=== PATIENT | female | born 1990 | race Caucasian/White ===

== ENCOUNTER 2017-09-13 17:45 | Inpatient (IN) ==
[2017-10-21] MEDS ORDERED: Vancomycin Consult Pharmacy 1 EACH OTHER SCH (00:01)
[2017-10-21] MEDS ORDERED: Bisacodyl 10 MG Supp RECTAL PRN (00:01)
[2017-10-21] MEDS ORDERED: Temazepam 15 MG Capsule PO PRN (00:01)
[2017-10-21] MEDS ORDERED: Acetaminophen 325 MG Tablet PO PRN (00:01)
[2017-10-21] MEDS ORDERED: Chlorhexidine Gluconate 2% 1 Pack (2 Cloths) TOPICAL PRN (04:00)
[2017-10-21] MEDS: Chlorhexidine Gluconate 2% 1 Pack (2 Cloths) TOPICAL SCH (05:21)
[2017-10-21 06:44] VITALS: RESP 18
[2017-10-21] MEDS: Morphine Sulfate 15 MG SR Tablet PO SCH (09:40)
[2017-10-21] MEDS: Famotidine 20 MG Tablet PO SCH (09:40)
[2017-10-21] MEDS: Senna/Docusate Sodium 8.6/50 MG Tablet PO SCH ×2 (09:40→22:45)
[2017-10-21] MEDS: Vancomycin Inj 750 MG in Sodium Chlor 0.9% Inj 250 ML IV.SIG SCH (10:42)
--- NOTE | 2017-10-21 15:41 | P.PNIM ---
Subjective Interval history: The patient complains of shooting pains into bilateral arms. Denies fevers or chills. Denies chest pain or shortness of breath. Physical Exam Vital signs: Vital Signs 10/21/17 00:58 10/21/17 04:20 10/21/17 08:00 Temperature 99 F 99 F 98.1 F Pulse Rate 96 H 89 79 Respiratory Rate 16 18 18 Blood Pressure 108/64 110/63 105/47 L Pulse Oximetry 100 99 99 10/21/17 12:00 Temperature 98.7 F Pulse Rate 93 H Respiratory Rate 18 Blood Pressure 121/58 L Pulse Oximetry 99 Intake & Output 10/20/17 10/21/17 10/21/17 18:59 06:59 18:59 Intake Total 1200 / 1200 Balance 1200 / 1200 Weight 52.1 kg 52 kg Intake: Oral 1200 / 1200 Other: # Voids 4 # Bowel Movements 0 - Constitutional no acute distress - Routine HEENT Exam Head: Present: normocephalic Eye: Present: EOMI, PERRL ENT: Present: mucous membranes moist - Routine Neck Exam Present: supple, full ROM - Routine Respiratory Exam Present: CTA bilaterally - Routine Cardiovascular Exam Present: murmur (Holosystolic murmur.) - Routine Abdominal Exam Present: soft, normoactive bowel sounds - Routine Extremities Exam Present: full ROM, pulses intact, normal capillary refill - Routine Skin Exam Present: intact - Routine Neurological Exam Present: alert, oriented X3, CN II-XII intact - Detailed Neurological Exam: Coma Scale Eye Opening: Spontaneous - Routine Psychiatric Exam Present: normal affect Results - Labs CBC & Chem 7: 10/20/17 07:06 10/20/17 07:06 Labs: Laboratory Results - last 24 hr 10/17/17 10/17/17 10/18/17 10:20 10:20 18:40 WBC RBC Hgb Hct MCV MCH MCHC RDW Plt Count MPV Neut % (Auto) Lymph % (Auto) [place] % (Auto) Eos % (Auto) Baso % (Auto) Neut # (Auto) Lymph # (Auto) [place] # (Auto) Eos # (Auto) Baso # (Auto) CBC Comment Sodium Potassium Chloride Carbon Dioxide Anion Gap BUN Creatinine 0.90 Estimated GFR 76 L Random Glucose Calcium Total Bilirubin AST ALT Alkaline Phosphatase Total Protein Albumin Vancomycin Trough Cancelled 14.0 H Urine Opiates Screen POS H Ur Barbiturates Screen NEG Ur Amphetamines Screen NEG U Benzodiazepines Scrn NEG Urine Cocaine Screen NEG U Cannabinoids Screen NEG 10/19/17 10/19/17 10/20/17 09:11 09:11 07:06 WBC 4.9 RBC 3.99 L Hgb 11.2 L Hct 33.9 L MCV 84.8 MCH 28.2 MCHC 33.2 RDW 14.1 Plt Count 271 MPV 7.3 Neut % (Auto) 57.0 Lymph % (Auto) 28.3 [place] % (Auto) 8.7 H Eos % (Auto) 5.2 H Baso % (Auto) 0.8 Neut # (Auto) 2.8 Lymph # (Auto) 1.4 [place] # (Auto) 0.4 Eos # (Auto) 0.3 Baso # (Auto) 0.0 CBC Comment DIFF FINAL Sodium 137 138 Potassium 3.5 3.8 Chloride 103 105 Carbon Dioxide 22.3 24.8 Anion Gap 12 8 BUN 18 15 Creatinine 0.89 0.89 Estimated GFR 77 L 77 L Random Glucose 61 L 74 Calcium 9.2 8.7 Total Bilirubin 0.2 0.3 AST 45 H 50 H ALT 80 H 81 H Alkaline Phosphatase 78 69 Total Protein 8.6 H 7.6 D Albumin 3.7 3.2 L Vancomycin Trough Urine Opiates Screen Ur Barbiturates Screen Ur Amphetamines Screen U Benzodiazepines Scrn Urine Cocaine Screen U Cannabinoids Screen 10/20/17 07:06 WBC 6.0 RBC 3.61 L Hgb 10.5 L Hct 30.6 L MCV 84.7 MCH 29.2 MCHC 34.5 RDW 13.6 Plt Count 259 MPV 7.8 Neut % (Auto) 62.0 Lymph % (Auto) 22.0 [place] % (Auto) 10.2 H Eos % (Auto) 5.0 H Baso % (Auto) 0.8 Neut # (Auto) 3.7 Lymph # (Auto) 1.3 [place] # (Auto) 0.6 Eos # (Auto) 0.3 Baso # (Auto) 0.0 CBC Comment DIFF FINAL Sodium Potassium Chloride Carbon Dioxide Anion Gap BUN Creatinine Estimated GFR Random Glucose Calcium Total Bilirubin AST ALT Alkaline Phosphatase Total Protein Albumin Vancomycin Trough Urine Opiates Screen Ur Barbiturates Screen Ur Amphetamines Screen U Benzodiazepines Scrn Urine Cocaine Screen U Cannabinoids Screen Assessment and Plan - Plan 27-year-old female with Severe sepsis 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 Currently on vancomycin IV every 12 hours repeat blood cultures from 09/19- negative for 5 days repeat 2d Echo- no MV vegetation reported on report- PT/OT daily 10/21 to the echocardiogram shows an EF of 55-60%. There is an anterior mitral valve leaflet prolapse. Report document small vegetation noted on anterior leaflet with extracardiac motion consistent with endocarditis. Severe mitral regurgitation. Await ID recommendations. Will contact CT surgery regarding recommendations regarding possible surgical procedure for mitral valve replacement. Left brachial vein DVT Right upper extremity DVT clinically improved on Eliquis 5 mg p.o. twice daily Hepatitis C Outpatient follow-up with Hepatology History fo substance abuse- snorting cocaine and marijuana Chronic Pain, bilateral UE weakness from recurrent DVT chronic back pain cervical/back Imaging studies negative PT daily. OT daily On Dilaudid to 1 mg po q 6 prn for pain continue on Morphine 15 mg bid po no change in regimen High suspicion the patient is doing drugs in the hospital. The patient has been placed closer to nurses station, her name has been changed to an Alias name and visitation rights have been restricted. 10/21 patient complains of bilateral shooting pains to bilateral upper extremities. This could be secondary to upper extremity DVT, however will start the patient on gabapentin for pain control. 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 Discharge Planning: Pending ID and CT surgery clearance.
[2017-10-22] MEDS: Vancomycin Inj 750 MG in Sodium Chlor 0.9% Inj 250 ML IV.SIG SCH ×3 (04:46→22:18)
[2017-10-22] MEDS: Morphine Sulfate 15 MG SR Tablet PO SCH ×3 (04:46→22:12)
[2017-10-22] MEDS: Famotidine 20 MG Tablet PO SCH ×3 (04:46→22:12)
[2017-10-22] MEDS: Chlorhexidine Gluconate 2% 1 Pack (2 Cloths) TOPICAL SCH (04:50)
[2017-10-22] MEDS ORDERED: Pharmacy Ordered Lab Info OTHER ONE ×2 (09:45→21:45)
[2017-10-22] MEDS: Senna/Docusate Sodium 8.6/50 MG Tablet PO SCH ×2 (10:48→22:15)
[2017-10-22] MEDS: ALPRAZolam 0.25 MG Tablet PO PRN ×2 (12:41)
--- NOTE | 2017-10-22 12:52 | P.PNIM ---
Subjective Interval history: Still c/o BL arm pain described as shooting pains in BL upper extremities, denies weakness. Denies fevers or chills. Denies diarrhea. Physical Exam Vital signs: Vital Signs 10/21/17 16:00 10/21/17 20:20 10/22/17 01:00 Temperature 99.8 F H 99 F 98.7 F Pulse Rate 101 H 95 H 103 H Respiratory Rate 18 16 16 Blood Pressure 103/52 L 104/50 L 136/82 Pulse Oximetry 99 99 99 10/22/17 04:00 10/22/17 08:00 10/22/17 08:54 Temperature 98 F 98.4 F Pulse Rate 88 74 80 Respiratory Rate 16 20 Blood Pressure 118/57 L 116/57 L Pulse Oximetry 100 99 10/22/17 12:35 Temperature 98.6 F Pulse Rate 81 Respiratory Rate 20 Blood Pressure 113/53 L Pulse Oximetry 99 Intake & Output 10/21/17 10/22/17 10/22/17 18:59 06:59 18:59 Intake Total 257.5 / 257.5 3657.5 / 3657.5 Balance 257.5 / 257.5 3657.5 / 3657.5 Weight 52 kg Intake: IV 257.5 / 257.5 257.5 / 257.5 Vancomycin Inj 750 MG In NS Inj 257.5 / 257.5 257.5 / 257.5 250 ML @ 250 mls/hr IV.SIG Q12H ANDREIA Rx#:[id number] Oral 3400 / 3400 Other: # Voids 2 # Bowel Movements 0 Narrative: - Constitutional no acute distress - Routine HEENT Exam Head: Present: normocephalic Eye: Present: EOMI, PERRL ENT: Present: mucous membranes moist - Routine Neck Exam Present: supple, full ROM - Routine Respiratory Exam Present: CTA bilaterally - Routine Cardiovascular Exam Present: murmur (Holosystolic murmur.) - Routine Abdominal Exam Present: soft, normoactive bowel sounds - Routine Extremities Exam Present: full ROM, pulses intact, normal capillary refill - Routine Skin Exam Present: intact - Routine Neurological Exam Present: alert, oriented X3, CN II-XII intact - Detailed Neurological Exam: Coma Scale Eye Opening: Spontaneous - Routine Psychiatric Exam Present: normal affect Results - Labs CBC & Chem 7: 10/20/17 07:06 10/20/17 07:06 Laboratory Results WBC 6.0 TH/MM3 (4.0-11.0) 10/20/17 07:06 RBC 3.61 MIL/MM3 (4.00-5.30) L 10/20/17 07:06 Hgb 10.5 GM/DL (11.6-15.3) L 10/20/17 07:06 Hct 30.6 % (35.0-46.0) L 10/20/17 07:06 MCV 84.7 FL (80.0-100.0) 10/20/17 07:06 MCH 29.2 PG (27.0-34.0) 10/20/17 07:06 MCHC 34.5 % (32.0-36.0) 10/20/17 07:06 RDW 13.6 % (11.6-17.2) 10/20/17 07:06 Plt Count 259 TH/MM3 (150-450) 10/20/17 07:06 MPV 7.8 FL (7.0-11.0) 10/20/17 07:06 Neut % (Auto) 62.0 % (16.0-70.0) 10/20/17 07:06 Lymph % (Auto) 22.0 % (9.0-44.0) 10/20/17 07:06 [place] % (Auto) 10.2 % (0.0-8.0) H 10/20/17 07:06 Eos % (Auto) 5.0 % (0.0-4.0) H 10/20/17 07:06 Baso % (Auto) 0.8 % (0.0-2.0) 10/20/17 07:06 Neut # (Auto) 3.7 TH/MM3 (1.8-7.7) 10/20/17 07:06 Lymph # (Auto) 1.3 TH/MM3 (1.0-4.8) 10/20/17 07:06 [place] # (Auto) 0.6 TH/MM3 (0-0.9) 10/20/17 07:06 Eos # (Auto) 0.3 TH/MM3 (0-0.4) 10/20/17 07:06 Baso # (Auto) 0.0 TH/MM3 (0-0.2) 10/20/17 07:06 CBC Comment DIFF FINAL 10/20/17 07:06 Total Counted 09/14/17 04:08 Neutrophils % (Manual) % (16-70) 09/14/17 04:08 Band Neutrophils % % (0-6) 09/14/17 04:08 Lymphocytes % % (9-44) 09/14/17 04:08 Neutrophils # (Manual) 7.3 TH/MM3 (1.8-7.7) 09/14/17 04:08 Differential Comment AUTO DIFF CONFIRMED 09/17/17 23:45 Toxic Granulation (NORMAL) 09/14/17 04:08 Toxic Vacuolation (NONE SEEN) 09/14/17 04:08 Dohle Bodies (NONE SEEN) 09/14/17 04:08 Platelet Estimate LOW (NORMAL) L 09/17/17 23:45 Plt Morphology Comment NORMAL (NORMAL) 09/17/17 23:45 RBC Morph Comment (NORMAL) 09/14/17 04:08 PT 11.2 SEC (9.8-11.6) 09/15/17 04:55 INR 1.1 RATIO 09/15/17 04:55 APTT 32.7 SEC (24.3-30.1) H D 09/15/17 04:55 Fibrinogen 401 mg/dL (227-377) H 09/15/17 04:55 Sodium 138 MEQ/L (136-145) 10/20/17 07:06 Potassium 3.8 MEQ/L (3.5-5.1) 10/20/17 07:06 Chloride 105 MEQ/L (98-107) 10/20/17 07:06 Carbon Dioxide 24.8 MEQ/L (21.0-32.0) 10/20/17 07:06 Anion Gap 8 MEQ/L (5-15) 10/20/17 07:06 BUN 15 MG/DL (7-18) 10/20/17 07:06 Creatinine 0.89 MG/DL (0.50-1.00) 10/20/17 07:06 Estimated GFR 77 ML/MIN (>89) L 10/20/17 07:06 Random Glucose 74 MG/DL (74-106) 10/20/17 07:06 Lactic Acid 2.8 mmol/L (0.4-2.0) H 09/15/17 04:55 Calcium 8.7 MG/DL (8.5-10.1) 10/20/17 07:06 Prot Corrected Calcium 7.3 MG/DL (8.5-10.1) L* 09/16/17 08:33 Phosphorus 3.3 MG/DL (2.5-4.9) D 09/17/17 07:45 Magnesium 1.7 MG/DL (1.5-2.5) D 09/16/17 08:33 Total Bilirubin 0.3 MG/DL (0.2-1.0) 10/20/17 07:06 AST 50 U/L (15-37) H 10/20/17 07:06 ALT 81 U/L (10-53) H 10/20/17 07:06 Alkaline Phosphatase 69 U/L (45-117) 10/20/17 07:06 Total Creatine Kinase 51 U/L (26-192) 09/16/17 08:33 CK-MB (CK-2) 1.4 NG/ML (0.5-3.6) 09/13/17 18:50 Troponin I 0.05 NG/ML (0.02-0.05) 09/24/17 11:50 C-Reactive Protein 6.80 MG/DL (0.00-0.30) H 09/21/17 05:51 Total Protein 7.6 GM/DL (6.4-8.2) D 10/20/17 07:06 Albumin 3.2 GM/DL (3.4-5.0) L 10/20/17 07:06 Thiamine 102 nmol/L (70-180) 09/15/17 04:55 Vitamin B12 748 PG/ML (193-986) 09/14/17 09:31 Thyroxine (T4) 8.4 MCG/DL (4.8-13.9) 09/14/17 09:31 TSH 3rd Generation 1.450 uIU/ML (0.358-3.740) 09/14/17 09:31 HCG, Quant LESS THAN 1 MIU/ML (0-5) 09/13/17 18:50 Urine Color YELLOW (YELLW/STRAW) 09/13/17 19:50 Urine Turbidity CLEAR (CLEAR) 09/13/17 19:50 Urine pH 5.5 (5.0-8.5) 09/13/17 19:50 Ur Specific [place] 1.006 (1.002-1.035) 09/13/17 19:50 Urine Protein NEG mg/dL (NEG-TRACE) 09/13/17 19:50 Urine Glucose (UA) NEG mg/dL (NEG) 09/13/17 19:50 Urine Ketones NEG mg/dL (NEG) 09/13/17 19:50 Urine Occult Blood SMALL (NEG) H 09/13/17 19:50 Urine Nitrite NEG (NEG) 09/13/17 19:50 Urine Bilirubin NEG (NEG) 09/13/17 19:50 Urine Urobilinogen LESS THAN 2.0 MG/DL (LESS THAN 2.0) 09/13/17 19:50 Ur Leukocyte Esterase MOD (NEG) H 09/13/17 19:50 Urine RBC 1 /hpf (0-3) 09/13/17 19:50 Urine WBC 8 /hpf (0-5) H 09/13/17 19:50 Ur Squamous Epith Cells 1 /hpf (0-5) 09/13/17 19:50 Urine Bacteria OCC /hpf (NONE) H 09/13/17 19:50 Urine Mucus FEW /lpf (OCC) H 09/13/17 19:50 Micro UA Comment CATH-CULTURE IND 09/13/17 19:50 CSF Volume (1) 3.0 ML 09/13/17 22:08 CSF Supernat Color (1) CLEAR (CLEAR) 09/13/17 22:08 CSF Gross Blood (1) TRACE (0) H 09/13/17 22:08 CSF Volume (2) 3.5 ML 09/13/17 22:08 CSF Supernat Color (2) CLEAR (CLEAR) 09/13/17 22:08 CSF Gross Blood (2) TRACE (0) 09/13/17 22:08 CSF Volume (3) 2.8 ML 09/13/17 22:08 CSF Supernat Color (3) CLEAR (CLEAR) 09/13/17 22:08 CSF Gross Blood (3) TRACE (0) H 09/13/17 22:08 CSF Volume (4) 2.8 ML 09/13/17 22:08 CSF Supernat Color (4) CLEAR (CLEAR) 09/13/17 22:08 CSF Gross Blood (4) TRACE (0) H 09/13/17 22:08 CSF WBC (4) 83 /MM3 (0-10) H 09/13/17 22:08 CSF RBC (4) 543 /MM3 (NONE) H 09/13/17 22:08 CSF Neutrophils 91 % 09/13/17 22:08 CSF Lymphocytes 8 % 09/13/17 22:08 CSF Monocytes 1 % 09/13/17 22:08 CSF Glucose 55 MG/DL (40-80) 09/13/17 22:08 CSF LDH LESS THAN 6 U/L 09/13/17 22:08 CSF Lactic Acid 4.3 MMOL/L (0.0-3.0) H 09/13/17 22:08 CSF Total Protein 73.4 MG/DL (15.0-45.0) H 09/13/17 22:08 CSF VDRL NON-REACTIVE (NON-REACTVE) 09/13/17 22:08 CSF Lyme IgG Bands Det 09/13/17 22:08 CSF Lyme IgM Bands Det 09/13/17 22:08 CSF Cryptococcus Ag NOT DETECTED (NEGATIVE) 09/13/17 22:08 CSF Cryptococcus Ag Cnfm ND 09/13/17 22:08 CSF Enterovirus Source CSF 09/13/17 22:08 CSF Enterovirus RNA Qual Negative (Negative) 09/13/17 22:08 Nasal Screen MRSA (PCR) MRSA DETECTED (NOT DETECT) 09/13/17 22:40 Gentamicin Peak 2.9 MCG/ML (4.0-8.0) L 09/20/17 01:33 Gentamicin Trough 1.0 MCG/ML (0.0-2.0) 09/19/17 21:45 Vancomycin Peak 9.5 MCG/ML (30.0-40.0) L 09/17/17 16:45 Vancomycin Trough 14.0 MCG/ML (5.0-10.0) H 10/17/17 10:20 Random Vancomycin 15.6 COMMENT 09/25/17 05:59 Urine Opiates Screen POS (NEG) H 10/18/17 18:40 Ur Barbiturates Screen NEG (NEG) 10/18/17 18:40 Ur Amphetamines Screen NEG (NEG) 10/18/17 18:40 U Benzodiazepines Scrn NEG (NEG) 10/18/17 18:40 Urine Cocaine Screen NEG (NEG) 10/18/17 18:40 U Cannabinoids Screen NEG (NEG) 10/18/17 18:40 RPR NON-REACTIVE (NON-REACTVE) 09/14/17 21:51 Chlam trachomat DNA PCR NOT DETECTED (NOT DETECT) 09/14/17 14:01 Hepatitis A IgM Ab NONREACTIVE (NONREACTIVE) 09/14/17 21:51 Hep Bs Antigen NONREACTIVE (NONREACTIVE) 09/14/17 21:51 Hep B Core IgM Ab NONREACTIVE (NONREACTIVE) 09/14/17 21:51 Hep C IgG Ab REACTIVE (NONREACTIVE) H 09/14/17 21:51 HSV I IgG Index Negative (Negative) 09/13/17 20:40 HSV I IgM Ab (IFA) NEGATIVE 09/13/17 20:40 HSV I IgM Titer ND 09/13/17 20:40 HSV II IgG Index Negative (Negative) 09/13/17 20:40 HSV II IgM Titer ND 09/13/17 20:40 HSV II IgM Ab (IFA) NEGATIVE 09/13/17 20:40 HSV I DNA PCR Negative (Negative) 09/13/17 22:08 HSV II DNA PCR Negative (Negative) 09/13/17 22:08 Blood HSV I (PCR) Negative (Negative) 09/13/17 20:40 BBlood HSV II (PCR) Negative (Negative) 09/13/17 20:40 HIV 1&2 Ab/P24 Ag 4thGn NONREACTIVE (NONREACTIVE) 09/14/17 21:51 N.gonorrhoeae DNA (PCR) NOT DETECTED (NOT DETECT) 09/14/17 14:01 - Procedures None Assessment and Plan - Plan 27-year-old female with Severe sepsis 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 Currently on vancomycin IV every 12 hours repeat blood cultures from 09/19- negative for 5 days repeat 2d Echo- no MV vegetation reported on report- PT/OT daily 10/22 to the echocardiogram shows an EF of 55-60%. There is an anterior mitral valve leaflet prolapse. Report document small vegetation noted on anterior leaflet with extracardiac motion consistent with endocarditis. Severe mitral regurgitation. Await ID recommendations. Will reconsult CT surgery regarding recommendations regarding possible surgical procedure for mitral valve replacement. Left brachial vein DVT Right upper extremity DVT clinically improved on Eliquis 5 mg p.o. twice daily 10/22 Add gabapentin 100 mg po TID for pain control of BL upper extremity pain. Hepatitis C Outpatient follow-up with Hepatology History fo substance abuse- snorting cocaine and marijuana Chronic Pain, bilateral UE weakness from recurrent DVT chronic back pain cervical/back Imaging studies negative PT daily. OT daily On Dilaudid to 1 mg po q 6 prn for pain continue on Morphine 15 mg bid po no change in regimen High suspicion the patient is doing drugs in the hospital. The patient has been placed closer to nurses station, her name has been changed to an Alias name and visitation rights have been restricted. 10/22 patient complains of bilateral shooting pains to bilateral upper extremities. This could be secondary to upper extremity DVT, however will start the patient on gabapentin for pain control. 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
--- NOTE | 2017-10-22 16:03 | P.PNCA ---
- Note Subjective/Hospital Course: 27/ female seen initially on 09/19/17 had a 2-week history of generalized fatigue , malaise, fever, chills and also a rash. She noticed this rash on her upper and lower extremities, more pronounced on her groin. Also, some night sweats, complaining of generalized pain all over, including the bottom of her feet. On admission, she was found to be somewhat septic and was admitted under critical care. Also, because of complaint of headache and neck pain, lumbar puncture studies showed elevated protein, elevated WBCs at 83,000. Blood cultures were positive for MRSA and MRSA nasal screen was also positive. She underwent 2-D echocardiogram , which showed ejection fraction of 65-70%, moderate eccentric posteriorly directed mitral regurgitation. There is a mobile echodensity located in the inflow of the anterior mitral valve of 1.8 x 0.84 cm, some moderate tricuspid regurgitation. Hepatitis C is positive. + MRSA bacteremia / treated with course of antibiotics MRA of the head is unremarkable. Abdominal pelvis CT: Small wedge-shaped perfusion defects in the spleen and both kidneys, concern for septic emboli. Brain MRI: Small septic areas of acute infarct in bilateral parietal and left occipital area. Cervical spine is negative. She has got some patchy bilateral lower lobe consolidative infiltrates. 09/18 MARIO 2.0x0.9cm mobile echodensity anterior leaflet of mitral valve initial toxicology screen is negative for illicit drugs.09/13 She does admit to snorting cocaine, smoking marijuana, smoking cigarettes. No alcohol. She denied ever using IV drugs. 10/15 tox screen + amphetamines / opiates Per PCP note High suspicion the patient is doing drugs in the hospital. The patient has been placed closer to nurses station, her name has been changed to an Alias name and visitation rights have been restricted. per ID note : RN informed she was found with drug paraphrenalia (spoon, drug filled syringe, tourniquet) 10/18 tox screen neg for amphetamines 10/22 reconsulted for repeat Echo Mitral valve endocarditis which showed small vegetation on anterior leaflet / severe MR EF 55 I Objective: Vital Signs - 24 hr 10/21/17 16:00 10/21/17 20:20 10/22/17 01:00 Temperature 99.8 F H 99 F 98.7 F Pulse Rate 101 H 95 H 103 H Respiratory Rate 18 16 16 Blood Pressure 103/52 L 104/50 L 136/82 Pulse Oximetry 99 99 99 10/22/17 04:00 10/22/17 08:00 10/22/17 08:54 Temperature 98 F 98.4 F Pulse Rate 88 74 80 Respiratory Rate 16 20 Blood Pressure 118/57 L 116/57 L Pulse Oximetry 100 99 10/22/17 12:35 Temperature 98.6 F Pulse Rate 81 Respiratory Rate 20 Blood Pressure 113/53 L Pulse Oximetry 99 GENERAL: cooperative SKIN: Warm and dry./ no wnew rashes HEAD: Normocephalic. EYES: No scleral icterus. No injection or drainage. NECK: Supple, trachea midline. No JVD or lymphadenopathy. CARDIOVASCULAR: Regular rate and rhythm 3/6 systolic murmur no gallops, or rubs. RESPIRATORY: Breath sounds equal bilaterally. No accessory muscle use. GASTROINTESTINAL: Abdomen soft, non-tender, nondistended. MUSCULOSKELETAL: No cyanosis, or edema. BACK: Nontender without obvious deformity. No CVA tenderness. Result Diagrams: 10/20/17 07:06 10/20/17 07:06 - Plan (2) Endocarditis of mitral valve Plan: Pt is positive for ongoing IV drug use with recent findings per Tox screen She is a high risk surgical candidate for mitral valve replacement as she would be best served with a mechanical valve which requires lifelong anticoagulation. She needs to cease high risk behaviors regarding drug use , tattoos . Recommend medical therapy for now . She can be seen in our office in 6 months with new urine drug screen prior to visit
[2017-10-22] MEDS: Gabapentin 100 MG Capsule PO SCH ×2 (16:06→18:04)
[2017-10-23] MEDS: ALPRAZolam 0.25 MG Tablet PO PRN (00:39)
--- NOTE | 2017-10-23 02:15 | P.AMA ---
AMA Note - AMA Note AMA Statement: Patient Elba Godoy has decided to leave the hospital against medical advice. This patient has the capacity to refuse care and understands the risks of leaving, including permanent disability and/or , and has had an opportunity to ask questions about his/her condition. The patient has been informed that he/she may return for care at any time, and follow up has been arranged/advised. - AMA Note Discharge Disposition: Left Against Medical Advice Patient Condition on Discharge: Fair
[2017-10-23 12:51] VITALS: BP 120/59; PULSE 80; TEMP 98.5
[2017-10-23 13:22] VITALS: O2SAT 100
--- NOTE | 2017-12-06 11:30 | P.DS ---
Date of admission: 09/13/17 20:03 Primary care physician: Justine Primary Care Physician Brief History from admission: Per admitting physician: 27-year-old very pleasant female presents for evaluation of diffuse painful/ pruritic rash, fever, diarrhea, generalized malaise. Symptoms started 2 days ago and have been progressively worsening. She is complaining of diffuse body pains described as burning/ache. No cough. No known allergies other than penicillin. No new exposures. No urinary symptoms. She denies IVDU or illicit drug use. She reports having had chickenpox when she was younger. During my assessment she complains of severe headache and photophobia. DS: Diagnosis - Discharge Diagnosis (1) Endocarditis of mitral valve Status: Acute (2) IVDU (intravenous drug user) Status: Acute DS: Summary Hospital Course: I am dictating this discharge summary for Dr. Sánchez since I am his supervising physician/medical coding specialist and Dr. Sánchez has left the practice. I have not seen the patient and was not involved with the patient's care at any point. This is a 27-year-old female initially admitted for evaluation of diffuse painful/pruritic rash, fever, diarrhea, generalized malaise. She denied IVDU or illicit drug use. After initial workup was done, there was a suspicion for infective endocarditis with severe sepsis. The patient was initially started on antibiotics, infectious disease was consulted. Patient was also found to have a left brachial vein DVT and right upper extremity DVT. Vascular surgery was consulted. There was a high suspicion that the patient was using drugs in the hospital hence the patient was placed close to the nurses station and her visitation rights were restricted. Conservative approach was also done with using narcotics. However during the course of the treatment, patient decided to leave AGAINST MEDICAL ADVICE hence patient was discharged AGAINST MEDICAL ADVICE. - Time Spent with Patient Total time spent providing and/or coordinating discharge services: Less than 30 minutes Results Procedures completed during hospitalization: None Discharge Plan - Discharge Disposition Patient Disposition: Left Against Medical Advice - Discharge Condition Condition: Fair - Discharge Order Discharge Orders: AMA Discharge (Routine); Ordered 10/23/17 Ordered By: Camilla Santos - Physicians Team Primary Care Provider: Primary Care Shannan,Justine Attending Provider: Robert Sousa Other Providers: Minh Parker MD ; Emi Davies MD ; Jose Ceballos MD ; Cristina Balderas MD ; - Rxs /Orders / Referrals /Forms Prescriptions: No Action No Known Home Medications
== END 2017-10-23 03:00 | disposition left against medical advice (07) ==
LOC: N05 20:03
PROVIDERS: ADMIT Hospitalist; ATTEND Hospitalist

== ENCOUNTER 2017-12-11 12:35 | Inpatient (IN) ==
[2017-12-11] MEDS ORDERED: Ketorolac Inj 30 MG/ML (IVP) Vial IV.PUSH ONE (14:26)
--- NOTE | 2017-12-11 14:37 | ED ---
HPI General Chief complaint: Extremity Problem,Nontraumatic Stated complaint: pain hands/knees/feet hx endocarditis Time Seen by Provider: 12/11/17 14:09 Source: patient Mode of arrival: ambulatory Limitations: no limitations History of Present Illness HPI narrative: 27-year-old homeless female with a history of endocarditis presents to the emergency department with the assistance of [facility] staff for evaluation of lesions and pain to the hands and knees. Patient was very reluctant to explain her symptoms today but after further discussion, she states that she has a subjective fever, headache, photophobia, stiff neck, neck pain, rashes to bilateral hands, chest pain or shortness of breath. Says that she decided to come in today because she feels weak and she is unable to live on like this. Says she has not followed up with any outpatient specialist or physicians. She is not taking any medications as an outpatient. Onset (ago): week(s) Radiation: non-radiation Pain Consistency: constant Relieving factors: none Treatments prior to arrival: none Related Data Home Medications Medication Instructions Recorded Confirmed No Known Home Medications 10/20/17 12/11/17 Allergies Allergy/AdvReac Type Severity Reaction Status Date / Time Penicillins Allergy Severe Anaphylaxis Verified 12/11/17 12:44 Review of Systems ROS: all other systems reviewed are negative [facility] Family History Family History Other No pertinent family history Social History Social History Substance History: Past History Second Hand Smoke Exposure: Yes Smoking Status: Heavy tobacco smoker Tobacco Type: Cigarettes Packs Per Day: 0.5 Cigarettes Per Day: 10.0 How Often Do You Have a Drink Containing Alcohol: Never Recent Travel in [facility] within the Last 8 Weeks: No Recent Out of Country Travel within the Last 8 Weeks: No Immunization History Tetanus Immunization: <5 Years Hx Influenza Vaccine This Season: Yes Exam Narrative Exam Narrative: GENERAL: WD, WN in moderate distress SKIN: Focused skin assessment warm/dry. bilateral hand with erythematous and ecchymotic macular, nonblanching rash- c/w [place] nodes. no nail findings such as splinter hemorrhages HEAD: Atraumatic. Normocephalic. EYES: Pupils equal and round. No scleral icterus. No injection or drainage. photophobia demonstrated ENT: No nasal bleeding or discharge. Mucous membranes pink and moist. NECK: Trachea midline. No JVD. TTP to entire neck with meningeal signs. CARDIOVASCULAR: Regular rate and rhythm. Holosystolic murmur grade 3/6 RESPIRATORY: No accessory muscle use. Clear to auscultation. Breath sounds equal bilaterally. GASTROINTESTINAL: Abdomen soft, non-tender, nondistended. Hepatic and splenic margins not palpable. MUSCULOSKELETAL: No obvious deformities. No clubbing. No cyanosis. No edema. NEUROLOGICAL: Awake and alert. No obvious cranial nerve deficits. Motor grossly within normal limits. Normal speech. PSYCHIATRIC: Appropriate mood and affect; insight and judgment normal. Course Initial Documented Vital Signs Temperature 100.8 F H 12/11/17 12:46 Pulse Rate 135 H 12/11/17 12:46 Respiratory Rate 16 12/11/17 12:46 Blood Pressure 118/68 12/11/17 12:46 Pulse Oximetry 98 12/11/17 12:46 Last Documented Vital Signs Temperature 98.2 F 12/13/17 16:00 Pulse Rate 116 H 12/13/17 16:00 Respiratory Rate 18 12/13/17 16:00 Blood Pressure 118/82 12/13/17 16:00 Pulse Oximetry 100 12/13/17 16:00 Medical Decision Making DEB Attestation DEB supervised visit: Yes Attestation: I, Dr. Marshall, have reviewed the advance practice practitioner's documentation and am in agreement, met with the patient face to face, made the diagnosis, and the medical decision making was done by me. *My assessment and Findings: Patient is lying supine on the stretcher. She is noted to have a diffuse petechial rash. She is also tachycardic and febrile. She has a lactic acidosis and leukocytosis. She reports a previous history of bacterial endocarditis in October of this year. She has been given empiric antibiotics to cover bacterial endocarditis. She is being admitted to the hospital for further evaluation and treatment. Please see Rylee Yoon PA-C's note for a more detailed H&P, final diagnosis and disposition MDM Narrative Medical decision making narrative: 27-year-old female presents to emergency department for evaluation of multiple medical complaints. Patient states that she left AMA October 23 and has not received any treatment up until she presented today. Patient was actually found in front of the [facility] building she says she was on her way here to the emergency department for evaluation. Continues to deny IVDU. Her vital signs are concerning. Initial heart rate 135. Blood pressure stable , temperature over 100. Toradol and tylenol administered for fever. Sepsis workup initiated. Head CT and CXR without acute process. Review the EMR it appears that patient was last on vancomycin and Rocephin. Initiated these medications. along with 1LNS IVF bolus. Administered cautiously as she has a history of endocarditis. There is a concern for developing meningitis. Will defer to inpatient medicine for further evaluation for possible LP as this was done previously. Will treat with antibiotics previously administered as performing an LP now would not change my treatment. I suspect endocarditis based off of history but again will allow inpatient team to evaluate for this. Pt admitted to Dr. Phelan. Medical Screen Exam Complete: Yes Emergency Medical Condition: Yes Differential Diagnosis Differential Diagnosis: endocarditis, sepsis, encephalitis, meningitis, influenza Medical Records Medical records reviewed: Yes I reviewed the patient's medical records. Review the EMR. Patient was apparently admitted September 13, 2017 with a diagnosis of encephalitis, sepsis, my trivalve endocarditis. She subsequently developed a left arm DVT and suspected septic emboli of the spleen and liver. It appears that patient was in the hospital from September 13 - October 23 where she discharged herself in a. At that time she was evaluated by infectious disease and cardiology. There was concern for long-term outpatient anticoagulants use because of possible history of IV drug use although she continually denied this. Lab Data Result diagrams: 12/12/17 10:20 12/12/17 10:20 Lab Results 12/11/17 12/11/17 12/11/17 Range/Units 15:10 15:10 15:10 CBC w Diff Auto diff final WBC 15.2 H (4.0-11.0) th/mm3 RBC 4.54 (4.00-5.30) mil/mm3 Hgb 12.0 (11.6-15.3) gm/dL Hct 37.1 (35.0-46.0) % MCV 81.6 (80.0-100.0) fL MCH 26.5 L (27.0-34.0) pg MCHC 32.4 (32.0-36.0) % RDW 14.2 (11.6-17.2) % Plt Count 179 (150-450) th/mm3 MPV 9.0 (7.0-11.0) fL Neut % (Auto) 94.8 H (16.0-70.0) % Lymph % (Auto) 2.6 L (9.0-44.0) % [place] % (Auto) 1.6 (0.0-8.0) % Eos % (Auto) 0.1 (0.0-4.0) % Baso % (Auto) 0.9 (0.0-2.0) % Neut # (Auto) 14.5 H (1.8-7.7) th/mm3 Lymph # (Auto) 0.4 L (1.0-4.8) th/mm3 [place] # (Auto) 0.2 (0.0-0.9) th/mm3 Eos # (Auto) 0.0 (0.0-0.4) th/mm3 Baso # (Auto) 0.1 (0.0-0.2) th/mm3 WBC Differential . Differential Comment . PT 11.3 (9.8-11.6) sec INR 1.1 Ratio APTT 28.0 (24.3-30.1) sec Sodium 129 L (136-145) meq/L Potassium 3.5 (3.5-5.1) meq/L Chloride 95 L (98-107) meq/L Carbon Dioxide 21.6 (21.0-32.0) meq/L Anion Gap 12 (5-15) meq/L BUN 20 H (7-18) mg/dL Creatinine 0.75 (0.50-1.00) mg/dL Estimated GFR Greater than 89 (>89) mL/min Random Glucose 111 H (74-106) mg/dL Lactic Acid (0.4-2.0) mmol/L Calcium 8.7 (8.5-10.1) mg/dL Total Bilirubin 0.6 (0.2-1.0) mg/dL AST 50 H (15-37) U/L ALT 39 (10-53) U/L Alkaline Phosphatase 86 (45-117) U/L Total Protein 8.3 H (6.4-8.2) g/dL Albumin 2.8 L (3.4-5.0) g/dL Urine Color (Yellw/Straw) Urine Clarity (Clear) Urine pH (5.0-8.5) Ur Specific [place] (1.002-1.035) Urine Protein (Neg-Trace) mg/dL Urine Glucose (UA) (Negative) mg/dL Urine Ketones (Negative) mg/dL Urine Occult Blood (Negative) Urine Nitrate (Negative) Urine Bilirubin (Negative) Urine Urobilinogen (Less than 2) mg/dL Ur Leukocyte Esterase (Negative) Urine RBC (0-3) /hpf Urine WBC (0-5) /hpf Ur Squamous Epith Cells (0-5) /hpf Urine Bacteria (None) /hpf Urine Trichomonas (None) /hpf Micro UA Comment Urine Culture Comments Urine Opiates Screen (Neg) Ur Barbiturates Screen (Neg) Ur Amphetamines Screen (Neg) U Benzodiazepines Scrn (Neg) Urine Cocaine Screen (Neg) U Cannabinoids Screen (Neg) 12/11/17 12/11/17 12/11/17 Range/Units 15:10 18:10 19:00 CBC w Diff WBC (4.0-11.0) th/mm3 RBC (4.00-5.30) mil/mm3 Hgb (11.6-15.3) gm/dL Hct (35.0-46.0) % MCV (80.0-100.0) fL MCH (27.0-34.0) pg MCHC (32.0-36.0) % RDW (11.6-17.2) % Plt Count (150-450) th/mm3 MPV (7.0-11.0) fL Neut % (Auto) (16.0-70.0) % Lymph % (Auto) (9.0-44.0) % [place] % (Auto) (0.0-8.0) % Eos % (Auto) (0.0-4.0) % Baso % (Auto) (0.0-2.0) % Neut # (Auto) (1.8-7.7) th/mm3 Lymph # (Auto) (1.0-4.8) th/mm3 [place] # (Auto) (0.0-0.9) th/mm3 Eos # (Auto) (0.0-0.4) th/mm3 Baso # (Auto) (0.0-0.2) th/mm3 WBC Differential Differential Comment PT (9.8-11.6) sec INR Ratio APTT (24.3-30.1) sec Sodium (136-145) meq/L Potassium (3.5-5.1) meq/L Chloride (98-107) meq/L Carbon Dioxide (21.0-32.0) meq/L Anion Gap (5-15) meq/L BUN (7-18) mg/dL Creatinine (0.50-1.00) mg/dL Estimated GFR (>89) mL/min Random Glucose (74-106) mg/dL Lactic Acid 2.7 H 1.6 (0.4-2.0) mmol/L Calcium (8.5-10.1) mg/dL Total Bilirubin (0.2-1.0) mg/dL AST (15-37) U/L ALT (10-53) U/L Alkaline Phosphatase (45-117) U/L Total Protein (6.4-8.2) g/dL Albumin (3.4-5.0) g/dL Urine Color Yellow (Yellw/Straw) Urine Clarity Slightly cloudy (Clear) Urine pH 6.0 (5.0-8.5) Ur Specific [place] Less/equal 1.005 (1.002-1.035) Urine Protein 30 H (Neg-Trace) mg/dL Urine Glucose (UA) Negative (Negative) mg/dL Urine Ketones Negative (Negative) mg/dL Urine Occult Blood Large H (Negative) Urine Nitrate Positive H (Negative) Urine Bilirubin Negative (Negative) Urine Urobilinogen 0.2 (Less than 2) mg/dL Ur Leukocyte Esterase Moderate H (Negative) Urine RBC 0-3 (0-3) /hpf Urine WBC 9-20 H (0-5) /hpf Ur Squamous Epith Cells 6-10 H (0-5) /hpf Urine Bacteria Few H (None) /hpf Urine Trichomonas Few H (None) /hpf Micro UA Comment Culture indicated Urine Culture Comments Culture indicated Urine Opiates Screen (Neg) Ur Barbiturates Screen (Neg) Ur Amphetamines Screen (Neg) U Benzodiazepines Scrn (Neg) Urine Cocaine Screen (Neg) U Cannabinoids Screen (Neg) 12/11/17 12/12/17 12/12/17 Range/Units 19:00 10:20 10:20 CBC w Diff Auto diff final WBC 11.5 H (4.0-11.0) th/mm3 RBC 4.01 (4.00-5.30) mil/mm3 Hgb 10.4 L (11.6-15.3) gm/dL Hct 32.6 L (35.0-46.0) % MCV 81.3 (80.0-100.0) fL MCH 26.0 L (27.0-34.0) pg MCHC 32.0 (32.0-36.0) % RDW 14.0 (11.6-17.2) % Plt Count 135 L (150-450) th/mm3 MPV 9.3 (7.0-11.0) fL Neut % (Auto) 85.1 H (16.0-70.0) % Lymph % (Auto) 6.7 L (9.0-44.0) % [place] % (Auto) 7.0 (0.0-8.0) % Eos % (Auto) 0.6 (0.0-4.0) % Baso % (Auto) 0.6 (0.0-2.0) % Neut # (Auto) 9.7 H (1.8-7.7) th/mm3 Lymph # (Auto) 0.8 L (1.0-4.8) th/mm3 [place] # (Auto) 0.8 (0.0-0.9) th/mm3 Eos # (Auto) 0.1 (0.0-0.4) th/mm3 Baso # (Auto) 0.1 (0.0-0.2) th/mm3 WBC Differential . Differential Comment . PT (9.8-11.6) sec INR Ratio APTT (24.3-30.1) sec Sodium 143 D (136-145) meq/L Potassium 3.1 L (3.5-5.1) meq/L Chloride 112 H D (98-107) meq/L Carbon Dioxide 19.7 L (21.0-32.0) meq/L Anion Gap 11 (5-15) meq/L BUN 25 H (7-18) mg/dL Creatinine 0.78 (0.50-1.00) mg/dL Estimated GFR 89 (>89) mL/min Random Glucose 80 (74-106) mg/dL Lactic Acid (0.4-2.0) mmol/L Calcium 8.2 L (8.5-10.1) mg/dL Total Bilirubin (0.2-1.0) mg/dL AST (15-37) U/L ALT (10-53) U/L Alkaline Phosphatase (45-117) U/L Total Protein (6.4-8.2) g/dL Albumin (3.4-5.0) g/dL Urine Color (Yellw/Straw) Urine Clarity (Clear) Urine pH (5.0-8.5) Ur Specific [place] (1.002-1.035) Urine Protein (Neg-Trace) mg/dL Urine Glucose (UA) (Negative) mg/dL Urine Ketones (Negative) mg/dL Urine Occult Blood (Negative) Urine Nitrate (Negative) Urine Bilirubin (Negative) Urine Urobilinogen (Less than 2) mg/dL Ur Leukocyte Esterase (Negative) Urine RBC (0-3) /hpf Urine WBC (0-5) /hpf Ur Squamous Epith Cells (0-5) /hpf Urine Bacteria (None) /hpf Urine Trichomonas (None) /hpf Micro UA Comment Urine Culture Comments Urine Opiates Screen Neg (Neg) Ur Barbiturates Screen Neg (Neg) Ur Amphetamines Screen Neg (Neg) U Benzodiazepines Scrn Neg (Neg) Urine Cocaine Screen Neg (Neg) U Cannabinoids Screen Neg (Neg) Imaging Data Radiologist's impression: Chest X-Ray 12/11/17 14:26 CONCLUSION: No acute cardiopulmonary abnormality is identified. Head CT 12/11/17 14:26 CONCLUSION: No acute intracranial abnormality is identified. . ECG Data EKG Prior to Arrival: No Attestation: I personally reviewed and interpreted this ECG as follows: Discharge Plan Discharge Disposition Patient Disposition: 30 Still Patient Discharge Condition Condition: Fair Discharge Order Discharge Orders: AMA Discharge (Routine); Ordered 12/13/17 Ordered By: Kisha Costa Discharge Details Diagnosis: Sepsis Physicians Team ED Provider: Colette Marshall ED Midlevel Provider: Rylee Yoon Primary Care Provider: Primary Care Justine Campbell Attending Provider: Alvaro Phelan Other Providers: Cammie Orr Status ED Status: Left Department Discharge Information Discharge Date/Time: 12/11/17 20:25
[2017-12-11] MEDS ORDERED: Vancomycin Inj 1,500 MG in Sodium Chlor 0.9% Inj 500 ML IV.SIG ONE (14:44)
--- NOTE | 2017-12-11 14:50 | CT ---
EXAM DATE: 12/11/2017 2:41 PM EDT AGE/SEX: 27 years / Female INDICATIONS: Cephalgia. CLINICAL DATA: This is the patient's initial encounter. Patient reports that signs and symptoms have been present for 1 day and indicates a pain score of 7/10. MEDICAL/SURGICAL HISTORY: . Endocarditis. None. RADIATION DOSE: 55.63 CTDI (mGy) COMPARISON: [facility] [place] BRAIN W & W/O CONTRAST, 09/14/2017. . TECHNIQUE: CT of the head without contrast. Using automated exposure control and adjustment of the mA and/or kV according to patient size, radiation dose was kept as low as reasonably achievable to ob tain optimal diagnostic quality images. DICOM format image data is available electronically for revi ew and comparison. FINDINGS: Cerebrum: The ventricles are normal. No midline shift, mass lesion, hemorrhage or acute infarction. No extraaxial fluid collections are seen. Posterior Fossa: The cerebellum and brainstem demonstrate no acute abnormality. The 4th ventricle is midline. The cerebellopontine angle is within normal limits. Extracranial: The visualized sinuses are clear. Skull: The calvaria is intact. No skull fracture. CONCLUSION: No acute intracranial abnormality is identified. . Electronically signed by: Juan Almonte MD 12/11/2017 2:48 PM EDT
--- NOTE | 2017-12-11 15:19 | XR ---
EXAM DATE: 12/11/2017 3:04 PM EDT AGE/SEX: 27 years / Female INDICATIONS: Chest pain, fever, rash, body aches, history of endocarditis. CLINICAL DATA: This is the patient's initial encounter. Patient reports that signs and symptoms have been present for 3 days and indicates a pain score of 10/10. MEDICAL/SURGICAL HISTORY: . Endocarditis. None. COMPARISON: [facility] – [place], CHEST SINGLE AP, 09/19/2017. . FINDINGS: Portable AP view of the chest demonstrates a normal-sized cardiac silhouette. No effusion, consolidat ion, or pneumothorax is identified. The bones and soft tissues demonstrate no acute finding. CONCLUSION: No acute cardiopulmonary abnormality is identified. Electronically signed by: Juan Almonte MD 12/11/2017 3:18 PM EDT
[2017-12-11 15:29] LABS: Baso # (Auto) 0.1 th/mm3 (0.0-0.2); Baso % (Auto) 0.9 % (0.0-2.0); Eos % (Auto) 0.1 % (0.0-4.0); Hematocrit 37.1 % (35.0-46.0); Lymph # (Auto) 0.4 th/mm3 (1.0-4.8); Lymph % (Auto) 2.6 % (9.0-44.0); Mean Corpuscular HGB Conc 32.4 % (32.0-36.0); Mean Corpuscular Hemoglobin 26.5 pg (27.0-34.0); Mean Corpuscular Volume 81.6 fL (80.0-100.0); Mono # (Auto) 0.2 th/mm3 (0.0-0.9); Mono % (Auto) 1.6 % (0.0-8.0); Neut # (Auto) 14.5 th/mm3 (1.8-7.7); Neut % (Auto) 94.8 % (16.0-70.0); Platelet Count 179 th/mm3 (150-450); Red Blood Count 4.54 mil/mm3 (4.00-5.30); Red Cell Distribution Width 14.2 % (11.6-17.2); White Blood Count 15.2 th/mm3 (4.0-11.0)
[2017-12-11 15:34] LABS: Chloride 95 meq/L (98-107); Potassium 3.5 meq/L (3.5-5.1); Sodium 129 meq/L (136-145)
[2017-12-11 15:38] LABS: Albumin 2.8 g/dL (3.4-5.0); Anion Gap 12 meq/L (5-15); Blood Urea Nitrogen 20 mg/dL (7-18); Calcium 8.7 mg/dL (8.5-10.1); Carbon Dioxide 21.6 meq/L (21.0-32.0); Glucose,Random 111 mg/dL (74-106)
[2017-12-11 15:40] LABS: INR 1.1 Ratio; Prothrombin Time 11.3 sec (9.8-11.6)
[2017-12-11 15:41] LABS: Alanine Aminotransferase 39 U/L (10-53); Aspartate Aminotransferase 50 U/L (15-37); Glomerular Filtration Rate Greater Than 89 mL/min (>89)
[2017-12-11 15:43] LABS: Total Protein 8.3 g/dL (6.4-8.2)
[2017-12-11 15:44] LABS: Alkaline Phosphatase 86 U/L (45-117)
[2017-12-11] MEDS ORDERED: Sod Chloride 0.9% Inj 1,000 ML IV.SIG ONE ×2 (15:59→18:15)
[2017-12-11] MEDS ORDERED: Acetaminophen 500 MG Tablet PO ONE (16:01)
--- NOTE | 2017-12-11 17:30 | P.HP ---
History of Present Illness Primary Care Physician: No Primary Care Physician Chief Complaint: Painful hands and feet History of Present Illness: This is a 27-year-old female patient who is homeless who presents to the ED with history of endocarditis, was recently admitted in August of this year with a diagnosis of endocarditis and left AMA October. She states that over the past couple weeks she has had complaints of pain to her bilateral hands and knees as well as her feet, she does admit to subjective fever, headaches, photophobia, stiff neck, diffuse rash and shortness of breath. Patient states that she lives in the [facility] alone, she does not follow with any outpatient specialist or physicians. She does not take any medications. She does admit to smoking half pack per day of cigarettes. She has been eating with intermittent complaints of nausea and vomiting. Patient does present with a diffuse petechial rash. Meets severe sepsis with temperature of 102 and tachycardia and leukocytosis. Lactic acid 2.7. She does admit to history of left arm DVT with suspected septic emboli of the spleen and liver as well as brain. Patient denies taking any anticoagulation. Denies any active drug use. During previous admission patient was seen by ID and cardiothoracic surgery, was deemed a poor candidate for surgical intervention due to noncompliance. Patient ended up leaving [place] at the time. At that time and ECHO and MARIO was performed. - Diagnosis (1) Sepsis (2) Endocarditis of mitral valve (3) IVDU (intravenous drug user) Review of Systems All other systems reviewed negative except as stated in HPI PMFSH - History History Provided By: Patient - Medical History Medical History: Medical History (Last Updated 12/11/17 @ 18:25 by Kisha Costa) Endocarditis - Surgical History Surgical History: Surgical History (Last Updated 12/11/17 @ 18:25 by Kisha Costa) No history of previous surgery - Family History Family History: Family History (Last Updated 12/11/17 @ 18:25 by Kisha Costa) Other No pertinent family history - Tobacco History Second Hand Smoke Exposure: Yes Tobacco Use In Past 30 Days: Yes Smoking Status: Current some day smoker Tobacco Type: Cigarettes Packs Per Day: 0.5 - Alcohol History How Often Do You Have a Drink Containing Alcohol: Never - Substance Use History Substance History: No History of Abuse - Travel History Recent Travel in the [facility] Within the Last 8 Weeks: No Recent Travel Out of the Country Within the Last 8 Weeks: No - Immunization History Tetanus Immunization: <5 Years Hx Influenza Vaccine This Season: Yes Medications and Allergies Allergies Allergy/AdvReac Type Severity Reaction Status Date / Time Penicillins Allergy Severe Anaphylaxis Verified 12/11/17 12:44 Home Medications Medication Instructions Recorded Confirmed Type No Known Home Medications 10/20/17 12/11/17 History Exam Vital signs: Vital Signs 12/11/17 12:46 12/11/17 15:33 12/11/17 15:51 Temperature 100.8 F H 102 F H Pulse Rate 135 H 119 H Respiratory Rate 16 16 Blood Pressure 118/68 124/80 Pulse Oximetry 98 98 100 12/11/17 17:02 Temperature 98.7 F Pulse Rate 94 H Respiratory Rate 18 Blood Pressure 95/50 L Pulse Oximetry 96 Intake & Output 12/10/17 12/11/17 12/11/17 18:59 06:59 18:59 Intake Total 1100 / 1100 Balance 1100 / 1100 Weight 50.8 kg Intake: IV 1100 / 1100 NS Inj 1,000 ML @ Wide Open IV. 1000 / 1000 SIG BOLUS ONE Rx#:[id number] Rocephin Inj 1,000 MG In NS Inj 100 / 100 100 ML @ 200 mls/hr IV.SIG ONCE ONE Rx#:[id number] Narrative: GENERAL: Well-developed, well-nourished patient in [facility]. SKIN: Warm and dry. No rash. HEAD: Normocephalic. Atraumatic. EYES: Pupils equal and round. No scleral icterus. No injection or drainage. ENT: No nasal bleeding or discharge. Mucous membranes pink and moist. NECK: Supple. Trachea midline. CARDIOVASCULAR: Regular rate and rhythm. S1, S2 noted. No murmur appreciated. RESPIRATORY: No accessory muscle use. Clear to auscultation. Breath sounds equal bilaterally. GASTROINTESTINAL: Abdomen soft, non-tender, nondistended. Normoactive bowel sounds x4. MUSCULOSKELETAL: No obvious deformities. Extremities without clubbing, cyanosis , or edema. NEUROLOGICAL: Awake and alert. No obvious cranial nerve deficits. Motor grossly within normal limits. 5/5 muscle strength in bilateral upper and lower extremities. Normal speech. PSYCHIATRIC: Appropriate mood and affect; insight and judgment normal. Results - Labs CBC & Chem 7: 12/11/17 15:10 12/11/17 15:10 Labs: Laboratory Results - last 24 hr 12/11/17 12/11/17 12/11/17 15:10 15:10 15:10 CBC w Diff Auto diff final WBC 15.2 H RBC 4.54 Hgb 12.0 Hct 37.1 MCV 81.6 MCH 26.5 L MCHC 32.4 RDW 14.2 Plt Count 179 MPV 9.0 Neut % (Auto) 94.8 H Lymph % (Auto) 2.6 L [place] % (Auto) 1.6 Eos % (Auto) 0.1 Baso % (Auto) 0.9 Neut # (Auto) 14.5 H Lymph # (Auto) 0.4 L [place] # (Auto) 0.2 Eos # (Auto) 0.0 Baso # (Auto) 0.1 WBC Differential . Differential Comment . PT 11.3 INR 1.1 APTT 28.0 Sodium 129 L Potassium 3.5 Chloride 95 L Carbon Dioxide 21.6 Anion Gap 12 BUN 20 H Creatinine 0.75 Estimated GFR Greater than 89 Random Glucose 111 H Lactic Acid Calcium 8.7 Total Bilirubin 0.6 AST 50 H ALT 39 Alkaline Phosphatase 86 Total Protein 8.3 H Albumin 2.8 L 12/11/17 15:10 CBC w Diff WBC RBC Hgb Hct MCV MCH MCHC RDW Plt Count MPV Neut % (Auto) Lymph % (Auto) [place] % (Auto) Eos % (Auto) Baso % (Auto) Neut # (Auto) Lymph # (Auto) [place] # (Auto) Eos # (Auto) Baso # (Auto) WBC Differential Differential Comment PT INR APTT Sodium Potassium Chloride Carbon Dioxide Anion Gap BUN Creatinine Estimated GFR Random Glucose Lactic Acid 2.7 H Calcium Total Bilirubin AST ALT Alkaline Phosphatase Total Protein Albumin - Imaging Impressions Chest X-Ray 12/11/17 14:26 CONCLUSION: No acute cardiopulmonary abnormality is identified. Head CT 12/11/17 14:26 CONCLUSION: No acute intracranial abnormality is identified. . Caprini VTE Risk Assessment Caprini VTE Risk Assessment: No/Low Risk (score <= 1) Caprini Risk Assessment Model: Point Value = 1 Point Value = 2 Point Value = 3 Point Value = 5 Age 41-60 Minor surgery BMI > 25 kg/m2 Swollen legs Varicose veins or History of unexplained or recurrent spontaneous Oral contraceptives or hormone replacement Sepsis (< 1 month) Serious lung disease, including pneumonia (< 1 month) Abnormal pulmonary function Acute myocardial infarction Congestive heart failure (< 1 month) History of inflammatory bowel disease Medical patient at bed rest Age 61-74 Arthroscopic surgery Major open surgery (> 45 min) Laparoscopic surgery (> 45 min) Malignancy Confined to bed (> 72 hours) Immobilizing plaster cast Central venous access Age >= 75 History of VTE Family history of VTE Factor V Leiden Prothrombin [id number] Lupus anticoagulant Anticardiolipin antibodies Elevated serum homocysteine Heparin-induced thrombocytopenia Other congenital or acquired thrombophilia Stroke (< 1 month) Elective arthroplasty Hip, pelvis, or leg fracture Acute spinal cord injury (< 1 month) Prophylaxis Regimen: Total Risk Factor Score Risk Level Prophylaxis Regimen 0-1 Low Early ambulation 2 Moderate Order ONE of the following: *Sequential Compression Device (SCD) *Heparin 5000 units SQ BID 3-4 Higher Order ONE of the following medications: *Heparin 5000 units SQ TID *Enoxaparin/Lovenox 40 mg SQ daily (WT < 150 kg, CrCl > 30 mL/min) *Enoxaparin/Lovenox 30 mg SQ daily (WT < 150 kg, CrCl > 10-29 mL/min) *Enoxaparin/Lovenox 30 mg SQ BID (WT < 150 kg, CrCl > 30 mL/min) AND/OR *Sequential Compression Device (SCD) 5 or more Highest Order ONE of the following medications: *Heparin 5000 units SQ TID (Preferred with Epidurals) *Enoxaparin/Lovenox 40 mg SQ daily (WT < 150 kg, CrCl > 30 mL/min) *Enoxaparin/Lovenox 30 mg SQ daily (WT < 150 kg, CrCl > 10-29 mL/min) *Enoxaparin/Lovenox 30 mg SQ BID (WT < 150 kg, CrCl > 30 mL/min) AND *Sequential Compression Device (SCD) Assessment and Plan - Assessment (1) Sepsis Code(s): A41.9 - Sepsis, unspecified organism Status: Acute (2) Endocarditis of mitral valve Code(s): I05.8 - Other rheumatic mitral valve diseases Status: Acute (3) IVDU (intravenous drug user) Code(s): F19.90 - Other psychoactive substance use, unspecified, uncomplicated Status: Acute - Plan This is a 27-year-old female patient with: Severe sepsis History of infective endocarditis + 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 Source likely endocarditis. -Aggressive IV hydration and resuscitation. Blood cultures ordered and pending. UA pending. Tox screen pending. CXR negative. -Continue on Vancomycin and Ceftriaxone, this was given in ED and resumed from prior admission in October 2017. -ID consulted, input and recommendations pending. At that time 6 weeks of IV Vancomycin was recommended per ID. Will continue for now. -ECHO reviewed from 10/22 showing EF 55-60%. There is an anterior mitral valve leaflet prolapse. Report document small vegetation noted on anterior leaflet with extracardiac motion consistent with endocarditis. -MARIO reviewed from October 2017 and +. -Awaiting ID recs if repeat imaging is neeed. -Head CT this admission negative. -Continue on cardiac telemetry, monitor for any arrhythmias. -Pain control, IV Toradol. Benadryl IV PRN for itching. -Supportive care. Diffuse generalized pain -Patient complaint of diffuse pain in bilateral upper and lower extremities. No specific joint is noted. Concern would be for any septic joint. At this time the pain is generalized. -Will continue to monitor. -Continue IV Toradol. History of hepatitis C -HSV PCR positive from last admission. -Outpatient follow up with Hepatology. History of IVDU -Patient denies any recent use of substance abuse or IV drugs. -Awaiting toxicology screen. History of left brachial vein DVT and right upper extremity DVT in October 2017 -No specific swelling noted. -Will continue to monitor. Placed on Lovenox. Tobacco abuse: Encouraged cessation. DVT prophylaxis: SCDs. Lovenox. (1) Sepsis Qualifiers: Sepsis type: sepsis due to unspecified organism Qualified Code(s): A41.9 - Sepsis, unspecified organism
[2017-12-11] MEDS ORDERED: Bisacodyl 10 MG Supp RECTAL PRN (17:31)
[2017-12-11] MEDS ORDERED: Acetaminophen 325 MG Tablet PO PRN (17:31)
[2017-12-11] MEDS: Sod Chloride 0.9% Inj 1,000 ML IV.CONT SCH (18:11)
[2017-12-11] MEDS ORDERED: Vancomycin Inj 1,000 MG in Sodium Chlor 0.9% Inj 250 ML IV.SIG SCH (19:00)
[2017-12-11] MEDS ORDERED: Vancomycin Consult Pharmacy OTHER PRN (19:08)
[2017-12-11 19:35] LABS: Bilirubin,Urine Negative (Negative); Clarity,Urine Slightly Cloudy (Clear); Color,Urine Yellow (Yellw/Straw); Glucose,Urine (UA) Negative (Negative); Leukocyte Esterase,Urine Moderate (Negative); Nitrite,Urine Positive (Negative); Specific Gravity,Urine Less/Equal 1.005 (1.002-1.035); Urobilinogen,Urine 0.2 mg/dL (Less than 2)
[2017-12-11 19:40] LABS: RBC,Urine 0-3 /hpf (0-3)
[2017-12-11 19:41] LABS: Bacteria,Urine Few /hpf
[2017-12-11 19:43] LABS: Amphetamine Screen,Urine Neg (Neg); Barbiturate Screen,Urine Neg (Neg); Cannabinoid Screen,Urine Neg (Neg); Cocaine Screen,Urine Neg (Neg); Trichomonas,Urine Few /hpf
[2017-12-11 20:05] LABS: Opiate Screen,Urine Neg (Neg)
[2017-12-11] MEDS: Ketorolac Inj 30 MG/ML (IVP) Vial IV.PUSH PRN (23:01)
--- NOTE | 2017-12-11 23:42 | ECG ---
Date Performed: 12/11/2017 Time Performed: 14:52:02 PTAGE: 27 years EKG: SINUS TACHYCARDIA WITH SHORT WI INTERVAL ABNORMAL RHYTHM ECG PREVIOUS TRACING : 09/23/2017 21.10 Compared to previous tracing, rate has increased, ST/T wav e changes anteriorly no longer as noticable DOCTOR: Huan Jeffery Interpretating Date/Time 12/11/2017 23:41:30
[2017-12-12] MEDS: Vancomycin Inj 500 MG in Sodium Chlor 0.9% Inj 100 ML IV.SIG SCH ×2 (00:40→15:04)
[2017-12-12] MEDS: Sod Chloride 0.9% Inj 1,000 ML IV.CONT SCH ×2 (04:40→15:03)
[2017-12-12] MEDS: Ketorolac Inj 30 MG/ML (IVP) Vial IV.PUSH PRN ×3 (04:40→15:04)
[2017-12-12] MEDS: Enoxaparin Inj 40 MG/0.4 ML Syringe SQ SCH (08:40)
--- NOTE | 2017-12-12 08:51 | P.CONID ---
History of Present Illness Service: Infectious disease Consult date: 12/12/17 Requesting Physician: Alvaro Phelan Reason for Consult: Evaluate patient with history of endocarditis, has not been compliant Primary Care Provider: No Primary Care Physician Chief Complaint: Painful hands and feet History of Present Illness: Patient seen and examined. Records reviewed. Patient is a 27-year-old female, she is currently homeless, presented to the hospital complaining of severe pain in both hands and feet, some subjective fevers, and a diffuse rash. Patient was in the hospital back in August, and at that time she was diagnosed to have a large vegetation in her mitral valve, with severe mitral regurgitation. Her blood cultures at that time were positive for MRSA, and the last positive blood culture was from September 16. During her presentation, she had evidence of embolic lesions in the brain, as well as in the spleen, as well as multiple embolic lesions in her body. She was in the hospital and was getting IV antibiotics, and there was a repeat echo done towards the end of September, and it read a small vegetation in the mitral valve. During that hospitalization, there was documentation that she was using IV drugs. Cardiothoracic surgeon had seen her and felt that she was a high risk for any kind of surgery due to her ongoing IV drug use. She signed out AGAINST MEDICAL ADVICE on October 23 and apparently has been homeless. She presented with dimension complaints. She continues to use IV drugs. Patient currently is complaining of significant pain in both hands and feet. She has not had any cough. She has had some chest pain, and chest x-ray on this admission did not show any cardiopulmonary disease. She denies any nausea or vomiting or any diarrhea. Since admission she has been febrile up to 102. Blood cultures are still pending. Infectious disease consultation has been requested to evaluate the patient with history of endocarditis, ongoing IV drug use, and evidence of sepsis. Review of Systems Constitutional: Reports body ache(s), Reports chills, Reports fever(s), Reports headache(s), Reports malaise Eyes: Denies discharge, Denies dry eyes Ears, Nose, Mouth, and Throat: Reports headache(s), Denies difficulty swallowing , Denies facial pain, Denies mouth pain, Denies nasal discharge, Denies sore throat Cardiovascular: Reports chest pain, Reports shortness of breath Respiratory: Reports shortness of breath, Denies chest congestion, Denies cough Gastrointestinal: Denies abdominal pain, Denies loose stools, Denies nausea, Denies pain with swallowing, Denies vomiting Genitourinary: Denies painful urination Musculoskeletal: Reports joint pain Skin/Breast: Reports rash PMFSH - History History Provided By: Patient, Medical Record - Medical History Medical History: Medical History (Last Updated 12/12/17 @ 08:47 by Cammie Orr MD) Endocarditis MRSA bacteremia Mitral regurgitation - Surgical History Surgical History: Surgical History (Last Reviewed 12/12/17 @ 08:47 by Cammie Orr MD) No history of previous surgery - Family History Family History: Family History (Last Updated 12/11/17 @ 18:25 by Kisha Costa) Other No pertinent family history - Tobacco History Second Hand Smoke Exposure: Yes Tobacco Use In Past 30 Days: Yes Smoking Status: Heavy tobacco smoker Tobacco Type: Cigarettes Packs Per Day: 0.5 - Alcohol History How Often Do You Have a Drink Containing Alcohol: Never - Substance Use History Substance History: Past History - Substance Use Type Amphetamines Status: Early Remission Route Used: Intravenously Frequency: daily Last Used: 09/04/2017 Reason for Use: Increase Energy Level Comment: states she has not used in 3 months. - Travel History Recent Travel in the [place] Within the Last 8 Weeks: No Recent Travel Out of the Country Within the Last 8 Weeks: No - Immunization History Tetanus Immunization: <5 Years Hx Influenza Vaccine This Season: Yes Medications and Allergies Active Medications: Active Medications Acetaminophen (Tylenol) 650 mg PO Q4H PRN PRN Reason: Temp > 100.4 Al Hydroxide/Mg Hydroxide (Milk Of [place]) 30 ml PO Q12H PRN PRN Reason: Mild Constipation Bisacodyl (Dulcolax Supp) 10 mg RECTAL DAILY PRN PRN Reason: SEVERE CONSITIPATION Diphenhydramine HCl (Benadryl Inj) 25 mg IV.PUSH Q6H PRN PRN Reason: ITCHING Enoxaparin Sodium (Lovenox Inj) 40 mg SQ DAILY [facility] Last Admin: 12/12/17 08:40 Dose: 40 mg Sodium Chloride (Ns Inj) 1,000 mls @ 100 mls/hr IV.CONT .Q10H [facility] Last Admin: 12/12/17 04:40 Dose: 100 mls/hr Ceftriaxone Sodium 1,000 mg/ (Sodium Chloride) 100 mls @ 200 mls/hr IV.SIG Q24H ANDREIA Vancomycin HCl 500 mg/ Sodium (Chloride) 100 mls @ 200 mls/hr IV.SIG Q8H ANDREIA Last Infusion: 12/12/17 01:10 Dose: Infused Ketorolac Tromethamine (Toradol Inj) 30 mg IV.PUSH Q6H PRN PRN Reason: PAIN SCALE 1 TO 10 Stop: 12/16/17 18:18 Last Admin: 12/12/17 04:40 Dose: 30 mg Lactulose (Lactulose Liq) 30 ml PO DAILY PRN PRN Reason: SEVERE CONSITIPATION Miscellaneous Information ([facility] Ordered Lab Info) 1 each OTHER ONCE ONE Stop: 12/13/17 15:46 Ondansetron HCl (Zofran Inj) 4 mg IV.PUSH Q6H PRN PRN Reason: NAUSEA OR VOMITING Pharmacy Profile Note (Vancomycin Consult Pharmacy) 1 each OTHER UNSCH PRN PRN Reason: Pharmacy to dose Sennosides (Senokot) 17.2 mg PO Q12H PRN PRN Reason: Moderate Constipation Allergies Allergy/AdvReac Type Severity Reaction Status Date / Time Penicillins Allergy Severe Anaphylaxis Verified 12/11/17 12:44 Home Medications Medication Instructions Recorded Confirmed Type No Known Home Medications 10/20/17 12/11/17 History Exam Vital signs: Vital Signs 12/11/17 12:46 12/11/17 15:33 12/11/17 15:51 Temperature 100.8 F H 102 F H Pulse Rate 135 H 119 H Respiratory Rate 16 16 Blood Pressure 118/68 124/80 Pulse Oximetry 98 98 100 12/11/17 17:02 12/11/17 18:12 12/11/17 18:37 Temperature 98.7 F Pulse Rate 94 H 96 H 94 H Respiratory Rate 18 18 18 Blood Pressure 95/50 L 106/57 L 95/59 L Pulse Oximetry 96 97 100 12/11/17 20:00 12/11/17 20:17 12/12/17 00:00 Temperature 96.0 F L 97.7 F 97.1 F L Pulse Rate 95 H 91 H 85 Respiratory Rate 16 20 16 Blood Pressure 102/57 L 94/54 L 105/57 L Pulse Oximetry 96 96 12/12/17 04:00 12/12/17 08:00 Temperature 98.2 F 97.7 F Pulse Rate 109 H 114 H Respiratory Rate 16 21 Blood Pressure 108/62 116/63 Pulse Oximetry 100 100 Intake & Output 12/11/17 12/12/17 12/12/17 18:59 06:59 18:59 Intake Total 1100 / 1100 3095 / 3095 240 / 240 Output Total 500 / 500 Balance 1100 / 1100 2595 / 2595 240 / 240 Weight 50.8 kg 54.7 kg Intake: IV 1100 / 1100 2615 / 2615 NS Inj 1,000 ML @ 100 mls/hr IV 1000 / 1000 .CONT .Q10H ANDREIA Rx#:[id number] NS Inj 1,000 ML @ Wide Open IV. 1000 / 1000 SIG BOLUS ONE Rx#:[id number] Vancomycin Inj 1,500 MG In NS 515 / 515 Inj 500 ML @ 250 mls/hr IV.SIG ONCE ONE Rx#:[id number] Vancomycin Inj 500 MG In NS Inj 100 / 100 100 ML @ 200 mls/hr IV.SIG Q8H ANDREIA Rx#:[id number] Rocephin Inj 1,000 MG In NS Inj 100 / 100 100 ML @ 200 mls/hr IV.SIG ONCE ONE Rx#:[id number] Oral 480 / 480 240 / 240 Output: Urine 500 / 500 Other: # Voids 2 # Bowel Movements 1 Weight On Admission 54.7 kg Narrative: Physical Examination GENERAL: Patient is a well-nourished, well-developed female, awake and alert , looks acutely ill appearing, C/O diffuse pain. SKIN: Warm and dry. Flushed face and neck area. Has generalized blanching pink papules, and has tender red very small nodular lesions in palms and soles of her feet. HEAD: Atraumatic. Normocephalic. No temporal wasting, or tenderness. EYES: [place] conjunctiva. No petechia or hemorrhage. Pupils equal, round and reactive to light. Extraocular movements full and intact. No scleral icterus. No injection or drainage. EARS, NOSE AND THROAT: Nose without bleeding or purulent nasal discharge. No sinus tenderness. Mucous membranes pink and moist. No oral lesions noted. No exudate. No oral thrush. NECK: Trachea midline. Supple and not tender, no meningeal signs CARDIOVASCULAR: Regular rate and rhythm. Tachycardic. Has murmur on L precordium, no rub. RESPIRATORY: Clear to auscultation. Breath sounds equal bilaterally. No rales , wheezing or rhonchi ABDOMEN: Soft, flat, non-tender, nondistended. Bowel sounds present and normoactive. No guarding. No rebound. No organomegaly. EXTREMITIES: No clubbing, cyanosis, or edema. No joint effusion, has good ROM. No calf tenderness. Well perfused and warm. NEUROLOGICAL: Awake and alert. Cranial nerves grossly intact. Motor grossly within normal limits. PSYCHIATRIC: Anxious due to pain, cooperative LINE: No evidence of infection Results - Labs CBC & Chem 7: 12/11/17 15:10 12/11/17 15:10 Labs: Laboratory Results - last 24 hr 12/11/17 12/11/17 12/11/17 15:10 15:10 15:10 CBC w Diff Auto diff final WBC 15.2 H RBC 4.54 Hgb 12.0 Hct 37.1 MCV 81.6 MCH 26.5 L MCHC 32.4 RDW 14.2 Plt Count 179 MPV 9.0 Neut % (Auto) 94.8 H Lymph % (Auto) 2.6 L [place] % (Auto) 1.6 Eos % (Auto) 0.1 Baso % (Auto) 0.9 Neut # (Auto) 14.5 H Lymph # (Auto) 0.4 L [place] # (Auto) 0.2 Eos # (Auto) 0.0 Baso # (Auto) 0.1 WBC Differential . Differential Comment . PT 11.3 INR 1.1 APTT 28.0 Sodium 129 L Potassium 3.5 Chloride 95 L Carbon Dioxide 21.6 Anion Gap 12 BUN 20 H Creatinine 0.75 Estimated GFR Greater than 89 Random Glucose 111 H Lactic Acid Calcium 8.7 Total Bilirubin 0.6 AST 50 H ALT 39 Alkaline Phosphatase 86 Total Protein 8.3 H Albumin 2.8 L Urine Color Urine Clarity Urine pH Ur Specific [place] Urine Protein Urine Glucose (UA) Urine Ketones Urine Occult Blood Urine Nitrate Urine Bilirubin Urine Urobilinogen Ur Leukocyte Esterase Urine RBC Urine WBC Ur Squamous Epith Cells Urine Bacteria Urine Trichomonas Micro UA Comment Urine Culture Comments Urine Opiates Screen Ur Barbiturates Screen Ur Amphetamines Screen U Benzodiazepines Scrn Urine Cocaine Screen U Cannabinoids Screen 12/11/17 12/11/17 12/11/17 15:10 18:10 19:00 CBC w Diff WBC RBC Hgb Hct MCV MCH MCHC RDW Plt Count MPV Neut % (Auto) Lymph % (Auto) [place] % (Auto) Eos % (Auto) Baso % (Auto) Neut # (Auto) Lymph # (Auto) [place] # (Auto) Eos # (Auto) Baso # (Auto) WBC Differential Differential Comment PT INR APTT Sodium Potassium Chloride Carbon Dioxide Anion Gap BUN Creatinine Estimated GFR Random Glucose Lactic Acid 2.7 H 1.6 Calcium Total Bilirubin AST ALT Alkaline Phosphatase Total Protein Albumin Urine Color Yellow Urine Clarity Slightly cloudy Urine pH 6.0 Ur Specific [place] Less/equal 1.005 Urine Protein 30 H Urine Glucose (UA) Negative Urine Ketones Negative Urine Occult Blood Large H Urine Nitrate Positive H Urine Bilirubin Negative Urine Urobilinogen 0.2 Ur Leukocyte Esterase Moderate H Urine RBC 0-3 Urine WBC 9-20 H Ur Squamous Epith Cells 6-10 H Urine Bacteria Few H Urine Trichomonas Few H Micro UA Comment Culture indicated Urine Culture Comments Culture indicated Urine Opiates Screen Ur Barbiturates Screen Ur Amphetamines Screen U Benzodiazepines Scrn Urine Cocaine Screen U Cannabinoids Screen 12/11/17 19:00 CBC w Diff WBC RBC Hgb Hct MCV MCH MCHC RDW Plt Count MPV Neut % (Auto) Lymph % (Auto) [place] % (Auto) Eos % (Auto) Baso % (Auto) Neut # (Auto) Lymph # (Auto) [place] # (Auto) Eos # (Auto) Baso # (Auto) WBC Differential Differential Comment PT INR APTT Sodium Potassium Chloride Carbon Dioxide Anion Gap BUN Creatinine Estimated GFR Random Glucose Lactic Acid Calcium Total Bilirubin AST ALT Alkaline Phosphatase Total Protein Albumin Urine Color Urine Clarity Urine pH Ur Specific [place] Urine Protein Urine Glucose (UA) Urine Ketones Urine Occult Blood Urine Nitrate Urine Bilirubin Urine Urobilinogen Ur Leukocyte Esterase Urine RBC Urine WBC Ur Squamous Epith Cells Urine Bacteria Urine Trichomonas Micro UA Comment Urine Culture Comments Urine Opiates Screen Neg Ur Barbiturates Screen Neg Ur Amphetamines Screen Neg U Benzodiazepines Scrn Neg Urine Cocaine Screen Neg U Cannabinoids Screen Neg - Imaging Impressions Chest X-Ray 12/11/17 14:26 CONCLUSION: No acute cardiopulmonary abnormality is identified. Head CT 12/11/17 14:26 CONCLUSION: No acute intracranial abnormality is identified. Assessment and Plan - Plan Impression Sepsis, patient with known IVDU and MRSA MV endocarditis, has received about 38 days IV Abx (From last +BC) - has ongoing IVDU, and this could still be her IE or she has gotten new pathogen due to her DU - has new skin lesions C/W endocarditis - previous HX embolic lesions to brain and spleen UTI Recommendation Continue IV vanco Add Cefepime Follow BC Repeat limited echo to reassess her valves, her last echo did show a smaller veg in her MV Follow temps Monitor progress Very difficult Rx plans due to her poor compliance and ongoing active IVDU I will follow along with you Thank you for this consultation D/W Dr Phelan ([facility])
[2017-12-12 10:45] LABS: Baso # (Auto) 0.1 th/mm3 (0.0-0.2); Baso % (Auto) 0.6 % (0.0-2.0); Eos # (Auto) 0.1 th/mm3 (0.0-0.4); Eos % (Auto) 0.6 % (0.0-4.0); Hematocrit 32.6 % (35.0-46.0); Hemoglobin 10.4 gm/dL (11.6-15.3); Lymph # (Auto) 0.8 th/mm3 (1.0-4.8); Lymph % (Auto) 6.7 % (9.0-44.0); Mean Corpuscular Volume 81.3 fL (80.0-100.0); Mean Platelet Volume 9.3 fL (7.0-11.0); Mono # (Auto) 0.8 th/mm3 (0.0-0.9); Neut # (Auto) 9.7 th/mm3 (1.8-7.7); Neut % (Auto) 85.1 % (16.0-70.0); Platelet Count 135 th/mm3 (150-450); Red Blood Count 4.01 mil/mm3 (4.00-5.30); White Blood Count 11.5 th/mm3 (4.0-11.0)
[2017-12-12 11:07] LABS: Potassium 3.1 meq/L (3.5-5.1)
[2017-12-12 11:23] LABS: Calcium 8.2 mg/dL (8.5-10.1); Carbon Dioxide 19.7 meq/L (21.0-32.0)
--- NOTE | 2017-12-12 12:31 | P.PN ---
Subjective Interval history: Follow-up sepsis and endocarditis. Patient seen and examined, lying on her stomach. She is uncooperative, refusing to turn over for exam. She states she did not sleep overnight. She is refusing physical therapy. Infectious disease and to see patient today, blood cultures are positive. Continue IV antibiotics. No other complaints. Physical Exam Vital signs: Vital Signs 12/11/17 12:46 12/11/17 15:33 12/11/17 15:51 Temperature 100.8 F H 102 F H Pulse Rate 135 H 119 H Respiratory Rate 16 16 Blood Pressure 118/68 124/80 Pulse Oximetry 98 98 100 12/11/17 17:02 12/11/17 18:12 12/11/17 18:37 Temperature 98.7 F Pulse Rate 94 H 96 H 94 H Respiratory Rate 18 18 18 Blood Pressure 95/50 L 106/57 L 95/59 L Pulse Oximetry 96 97 100 12/11/17 20:00 12/11/17 20:17 12/12/17 00:00 Temperature 96.0 F L 97.7 F 97.1 F L Pulse Rate 95 H 91 H 85 Respiratory Rate 16 20 16 Blood Pressure 102/57 L 94/54 L 105/57 L Pulse Oximetry 96 96 12/12/17 04:00 12/12/17 07:15 12/12/17 08:00 Temperature 98.2 F 97.7 F Pulse Rate 109 H 107 H 114 H Respiratory Rate 16 21 Blood Pressure 108/62 116/63 Pulse Oximetry 100 100 Intake & Output 12/11/17 12/12/17 12/12/17 18:59 06:59 18:59 Intake Total 1100 / 1100 3095 / 3095 340 / 340 Output Total 500 / 500 Balance 1100 / 1100 2595 / 2595 340 / 340 Weight 50.8 kg 54.7 kg Intake: IV 1100 / 1100 2615 / 2615 100 / 100 NS Inj 1,000 ML @ 100 mls/hr IV 1000 / 1000 .CONT .Q10H [facility] Rx#:[id number] Maxipime Inj 2,000 MG In NS Inj 100 / 100 100 ML @ 200 mls/hr IV.SIG Q8H [facility] Rx#:[id number] NS Inj 1,000 ML @ Wide Open IV. 1000 / 1000 SIG BOLUS ONE Rx#:[id number] Vancomycin Inj 1,500 MG In NS 515 / 515 Inj 500 ML @ 250 mls/hr IV.SIG ONCE ONE Rx#:[id number] Vancomycin Inj 500 MG In NS Inj 100 / 100 100 ML @ 200 mls/hr IV.SIG Q8H [facility] Rx#:[id number] Rocephin Inj 1,000 MG In NS Inj 100 / 100 100 ML @ 200 mls/hr IV.SIG ONCE ONE Rx#:[id number] Oral 480 / 480 240 / 240 Output: Urine 500 / 500 Other: # Voids 2 # Bowel Movements 1 Weight On Admission 54.7 kg Narrative: GENERAL: Well-developed, well-nourished patient in [facility]. SKIN: Warm and dry. Diffuse petechial rash. Scattered abrasions. HEAD: Normocephalic. Atraumatic. EYES: Pupils equal and round. No scleral icterus. No injection or drainage. ENT: No nasal bleeding or discharge. Mucous membranes pink and moist. NECK: Supple. Trachea midline. CARDIOVASCULAR: Regular rate and rhythm. S1, S2 noted. RESPIRATORY: No accessory muscle use. Clear to auscultation. Breath sounds equal bilaterally. GASTROINTESTINAL: Abdomen soft, non-tender, nondistended. Normoactive bowel sounds x4. MUSCULOSKELETAL: No obvious deformities. Extremities without clubbing, cyanosis , or edema. NEUROLOGICAL: Awake and alert. No obvious cranial nerve deficits. Motor grossly within normal limits. Normal speech. Results - Labs CBC & Chem 7: 12/12/17 10:20 12/12/17 10:20 Laboratory Results - last 24 hr 12/11/17 12/11/17 12/11/17 15:10 15:10 15:10 CBC w Diff Auto diff final WBC 15.2 H RBC 4.54 Hgb 12.0 Hct 37.1 MCV 81.6 MCH 26.5 L MCHC 32.4 RDW 14.2 Plt Count 179 MPV 9.0 Neut % (Auto) 94.8 H Lymph % (Auto) 2.6 L [place] % (Auto) 1.6 Eos % (Auto) 0.1 Baso % (Auto) 0.9 Neut # (Auto) 14.5 H Lymph # (Auto) 0.4 L [place] # (Auto) 0.2 Eos # (Auto) 0.0 Baso # (Auto) 0.1 WBC Differential . Differential Comment . PT 11.3 INR 1.1 APTT 28.0 Sodium 129 L Potassium 3.5 Chloride 95 L Carbon Dioxide 21.6 Anion Gap 12 BUN 20 H Creatinine 0.75 Estimated GFR Greater than 89 Random Glucose 111 H Lactic Acid Calcium 8.7 Total Bilirubin 0.6 AST 50 H ALT 39 Alkaline Phosphatase 86 Total Protein 8.3 H Albumin 2.8 L Urine Color Urine Clarity Urine pH Ur Specific [place] Urine Protein Urine Glucose (UA) Urine Ketones Urine Occult Blood Urine Nitrate Urine Bilirubin Urine Urobilinogen Ur Leukocyte Esterase Urine RBC Urine WBC Ur Squamous Epith Cells Urine Bacteria Urine Trichomonas Micro UA Comment Urine Culture Comments Urine Opiates Screen Ur Barbiturates Screen Ur Amphetamines Screen U Benzodiazepines Scrn Urine Cocaine Screen U Cannabinoids Screen 12/11/17 12/11/17 12/11/17 15:10 18:10 19:00 CBC w Diff WBC RBC Hgb Hct MCV MCH MCHC RDW Plt Count MPV Neut % (Auto) Lymph % (Auto) [place] % (Auto) Eos % (Auto) Baso % (Auto) Neut # (Auto) Lymph # (Auto) [place] # (Auto) Eos # (Auto) Baso # (Auto) WBC Differential Differential Comment PT INR APTT Sodium Potassium Chloride Carbon Dioxide Anion Gap BUN Creatinine Estimated GFR Random Glucose Lactic Acid 2.7 H 1.6 Calcium Total Bilirubin AST ALT Alkaline Phosphatase Total Protein Albumin Urine Color Yellow Urine Clarity Slightly cloudy Urine pH 6.0 Ur Specific [place] Less/equal 1.005 Urine Protein 30 H Urine Glucose (UA) Negative Urine Ketones Negative Urine Occult Blood Large H Urine Nitrate Positive H Urine Bilirubin Negative Urine Urobilinogen 0.2 Ur Leukocyte Esterase Moderate H Urine RBC 0-3 Urine WBC 9-20 H Ur Squamous Epith Cells 6-10 H Urine Bacteria Few H Urine Trichomonas Few H Micro UA Comment Culture indicated Urine Culture Comments Culture indicated Urine Opiates Screen Ur Barbiturates Screen Ur Amphetamines Screen U Benzodiazepines Scrn Urine Cocaine Screen U Cannabinoids Screen 12/11/17 12/12/17 12/12/17 19:00 10:20 10:20 CBC w Diff Auto diff final WBC 11.5 H RBC 4.01 Hgb 10.4 L Hct 32.6 L MCV 81.3 MCH 26.0 L MCHC 32.0 RDW 14.0 Plt Count 135 L MPV 9.3 Neut % (Auto) 85.1 H Lymph % (Auto) 6.7 L [place] % (Auto) 7.0 Eos % (Auto) 0.6 Baso % (Auto) 0.6 Neut # (Auto) 9.7 H Lymph # (Auto) 0.8 L Lawrence # (Auto) 0.8 Eos # (Auto) 0.1 Baso # (Auto) 0.1 WBC Differential . Differential Comment . PT INR APTT Sodium 143 D Potassium 3.1 L Chloride 112 H D Carbon Dioxide 19.7 L Anion Gap 11 BUN 25 H Creatinine 0.78 Estimated GFR 89 Random Glucose 80 Lactic Acid Calcium 8.2 L Total Bilirubin AST ALT Alkaline Phosphatase Total Protein Albumin Urine Color Urine Clarity Urine pH Ur Specific [place] Urine Protein Urine Glucose (UA) Urine Ketones Urine Occult Blood Urine Nitrate Urine Bilirubin Urine Urobilinogen Ur Leukocyte Esterase Urine RBC Urine WBC Ur Squamous Epith Cells Urine Bacteria Urine Trichomonas Micro UA Comment Urine Culture Comments Urine Opiates Screen Neg Ur Barbiturates Screen Neg Ur Amphetamines Screen Neg U Benzodiazepines Scrn Neg Urine Cocaine Screen Neg U Cannabinoids Screen Neg Microbiology 12/11/17 15:10 Blood - Peripheral Aerobic Blood Culture - Preliminary Staphylococcus aureus 12/11/17 15:10 Blood - Peripheral Anaerobic Blood Culture - Preliminary gram positive cocci 12/11/17 15:15 Blood - Peripheral Aerobic Blood Culture - Preliminary gram positive cocci 12/11/17 15:15 Blood - Peripheral Anaerobic Blood Culture - Preliminary gram positive cocci 12/11/17 15:45 Nasal Wash Influenza Types A,B Antigen - Final Negative for FLU A and B antigen Infection due to influenza A or B cannot be ruled out since the antigen present in the sample may be below the detection limit of the test. - Imaging Impressions Chest X-Ray 12/11/17 14:26 CONCLUSION: No acute cardiopulmonary abnormality is identified. Head CT 12/11/17 14:26 CONCLUSION: No acute intracranial abnormality is identified. . 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 Source likely endocarditis. -Aggressive IV hydration and resuscitation. Blood cultures positive 4 bottles with gram positive cocci. UA positive, urine culture pending. Tox screen negative. CXR negative. -Continue on Vancomycin infectious disease following, and cefepime. -ID consulted, appreciate input and recommendations. -ECHO reviewed from 10/22 showing EF 55-60%. There is an anterior mitral valve leaflet prolapse. Report document small vegetation noted on anterior leaflet with extracardiac motion consistent with endocarditis. -MARIO reviewed from October 2017 and +. -Repeat limited echo today. Pending results. -Head CT this admission negative. -Continue on cardiac telemetry, monitor for any arrhythmias. No arrhythmias overnight. -Pain control, IV Toradol. Benadryl IV PRN for itching. -Supportive care. Diffuse generalized pain -Patient complaint of diffuse pain in bilateral upper and lower extremities. No specific joint is noted. Concern would be for any septic joint. At this time the pain is generalized. -Will continue to monitor. -Continue IV Toradol. History of hepatitis C -HSV PCR positive from last admission. -Outpatient follow up with Hepatology. History of IVDU -Patient denies any recent use of substance abuse or IV drugs. -Awaiting toxicology screen. History of left brachial vein DVT and right upper extremity DVT in October 2017 -No specific swelling noted. -Will continue to monitor. Placed on Lovenox. Tobacco abuse: Encouraged cessation. DVT prophylaxis: SCDs. Lovenox. (1) Sepsis Qualifiers: Sepsis type: sepsis due to unspecified organism Qualified Code(s): A41.9 - Sepsis, unspecified organism
--- NOTE | 2017-12-12 17:22 | ECHRPT ---
Indication: POSS SEPSIS, ENDOCARDITIS CONCLUSIONS No regional wall motion abnormalities are present. Normal left ventricular size. Wall thickness is n ormal. The left ventricular systolic function is hyperdynamic with an estimated ejection fraction in the ra nge of 65- 70%. The left atrial size is upper limits of normal. Approximately 10 x 6 mm slightly irregular, mildly mobile, homogeneous echodensity on the atrial dao face of the anterior mitral leaflet, consistent with vegetation. There is associated moderate to severe pos teriorly directed mitral regurgitation demonstrating the Coanda effect. There is mild tricuspid valve regurgitation. The estimated pulmonary arterial pressure is 46 mmHg. There is a very small pericardial effusion present. BP: / HR: Rhythm: Sinus MEASUREMENTS (Male / Female) Normal Values Technical Quality:Fair 2D ECHO LV Diastolic Diameter PLAX 5.0 cm 4.2 - 5.9 / 3.9 - 5.3 cm LV Systolic Diameter PLAX 3.4 cm IVS Diastolic Thickness 0.8 cm 0.6 - 1.0 / 0.6 - 0.9 cm LVPW Diastolic Thickness 0.7 cm 0.6 - 1.0 / 0.6 - 0.9 cm LV Relative Wall Thickness 0.3 RV Internal Dim ED PLAX 2.5 cm LA Systolic Diameter LX 4.0 cm 3.0 - 4.0 / 2.7 - 3.8 cm DOPPLER TR Peak Velocity 300.0 cm/s TR Peak Gradient 36.0 mmHg Right Atrial Pressure 10.0 mmHg Pulmonary Artery Systolic Pressu 46.0 mmHg Right Ventricular Systolic Press 46.0 mmHg FINDINGS LEFT VENTRICLE No regional wall motion abnormalities are present. Normal left ventricular size. Wall thickness is n ormal. The left ventricular systolic function is hyperdynamic with an estimated ejection fraction in the ra nge of 65- 70%. RIGHT VENTRICLE Normal right ventricular size and systolic function. LEFT ATRIUM The left atrial size is upper limits of normal. RIGHT ATRIUM The right atrial size is normal. ATRIAL SEPTUM Normal atrial septal thickness without atrial level shunting by limited color doppler interrogation. AORTA The aortic root and proximal ascending aorta are normal in size on limited imaging. MITRAL VALVE Approximately 10 x 6 mm slightly irregular, mildly mobile, homogeneous echodensity on the atrial dao face of the anterior mitral leaflet, consistent with vegetation. There is associated moderate to severe pos teriorly directed mitral regurgitation demonstrating the Coanda effect. AORTIC VALVE Trileaflet aortic valve. No aortic valve stenosis or regurgitation. TRICUSPID VALVE There is mild tricuspid valve regurgitation. The estimated pulmonary arterial pressure is 46 mmHg. PULMONARY VALVE No pulmonary valve regurgitation or stenosis. VESSELS The inferior vena cava is normal in size. PERICARDIUM There is a very small pericardial effusion present. Wesley Castañeda MD (Electronically Signed) Final Date:12 December 2017 17:20
[2017-12-13] MEDS: Sod Chloride 0.9% Inj 1,000 ML IV.CONT SCH ×2 (02:03→11:50)
--- NOTE | 2017-12-13 08:33 | P.PN ---
Subjective Interval history: Follow up bacteremia and endocarditis. Patient seen and examined. Patient is awake today, states her pain is mildly improved. Patient states that she did sleep, is eating well without any abdominal pain, nausea or vomiting. Denies any shortness of breath or chest pain. Spoke to patient at length regarding treatment plan and importance of compliance with medications and treatment. Patient is agreeable to stay. Awaiting culture growth. Physical Exam Vital signs: Vital Signs 12/12/17 12:00 12/12/17 16:00 12/12/17 20:00 Temperature 97.6 F 97.0 F L 97.7 F Pulse Rate 109 H 98 H 114 H Respiratory Rate 19 16 20 Blood Pressure 100/65 104/76 103/70 Pulse Oximetry 100 100 100 12/13/17 00:00 12/13/17 07:41 Temperature 98.4 F 98.2 F Pulse Rate 117 H 105 H Respiratory Rate 20 20 Blood Pressure 114/67 119/71 Pulse Oximetry 98 97 Intake & Output 12/12/17 12/13/17 12/13/17 18:59 06:59 18:59 Intake Total 1540 / 1540 1360 / 1360 Output Total 3 / 3 600 / 600 Balance 1537 / 1537 760 / 760 Weight 56.2 kg Intake: IV 1300 / 1300 1000 / 1000 NS Inj 1,000 ML @ 100 mls/hr IV 1000 / 1000 1000 / 1000 .CONT .Q10H [facility] Rx#:[id number] Maxipime Inj 2,000 MG In NS Inj 200 / 200 100 ML @ 200 mls/hr IV.SIG Q8H [facility] Rx#:[id number] Vancomycin Inj 500 MG In NS Inj 100 / 100 100 ML @ 200 mls/hr IV.SIG Q8H [facility] Rx#:[id number] Oral 240 / 240 360 / 360 Output: Urine 3 / 3 600 / 600 Other: # Voids 3 # Bowel Movements 4 Narrative: GENERAL: Well-developed, well-nourished patient in [facility]. SKIN: Warm and dry. Diffuse petechial rash. Scattered abrasions. HEAD: Normocephalic. Atraumatic. EYES: Pupils equal and round. No scleral icterus. No injection or drainage. ENT: No nasal bleeding or discharge. Mucous membranes pink and moist. NECK: Supple. Trachea midline. CARDIOVASCULAR: Regular rate and rhythm. S1, S2 noted. RESPIRATORY: No accessory muscle use. Clear to auscultation. Breath sounds equal bilaterally. GASTROINTESTINAL: Abdomen soft, non-tender, nondistended. Normoactive bowel sounds x4. MUSCULOSKELETAL: No obvious deformities. Extremities without clubbing, cyanosis , or edema. NEUROLOGICAL: Awake and alert. No obvious cranial nerve deficits. Motor grossly within normal limits. Normal speech. Results - Labs CBC & Chem 7: 12/12/17 10:20 12/12/17 10:20 Laboratory Results - last 24 hr 12/12/17 12/12/17 10:20 10:20 CBC w Diff Auto diff final WBC 11.5 H RBC 4.01 Hgb 10.4 L Hct 32.6 L MCV 81.3 MCH 26.0 L MCHC 32.0 RDW 14.0 Plt Count 135 L MPV 9.3 Neut % (Auto) 85.1 H Lymph % (Auto) 6.7 L [place] % (Auto) 7.0 Eos % (Auto) 0.6 Baso % (Auto) 0.6 Neut # (Auto) 9.7 H Lymph # (Auto) 0.8 L [place] # (Auto) 0.8 Eos # (Auto) 0.1 Baso # (Auto) 0.1 WBC Differential . Differential Comment . Sodium 143 D Potassium 3.1 L Chloride 112 H D Carbon Dioxide 19.7 L Anion Gap 11 BUN 25 H Creatinine 0.78 Estimated GFR 89 Random Glucose 80 Calcium 8.2 L Microbiology 12/11/17 19:00 Clean Catch Urine Urine Culture - Preliminary Immature growth - reincubate 12/11/17 15:10 Blood - Peripheral Aerobic Blood Culture - Preliminary Staphylococcus aureus 12/11/17 15:10 Blood - Peripheral Anaerobic Blood Culture - Preliminary gram positive cocci 12/11/17 15:15 Blood - Peripheral Aerobic Blood Culture - Preliminary gram positive cocci 12/11/17 15:15 Blood - Peripheral Anaerobic Blood Culture - Preliminary gram positive cocci Assessment and Plan - Assessment (1) Sepsis Code(s): A41.9 - Sepsis, unspecified organism Status: Acute (2) Endocarditis of mitral valve Code(s): 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 Source likely endocarditis. -Aggressive IV hydration and resuscitation. Blood cultures positive 4 bottles with gram positive cocci. Awaiting further growth. UA positive, urine culture pending. Tox screen negative. CXR negative. -Continue on Vancomycin infectious disease following, and cefepime. -ID consulted, appreciate input and recommendations. -ECHO reviewed from 10/22 showing EF 55-60%. There is an anterior mitral valve leaflet prolapse. Report document small vegetation noted on anterior leaflet with extracardiac motion consistent with endocarditis. -MARIO reviewed from October 2017 and +. -Repeat limited echo today. Pending results. -Head CT this admission negative. -Continue on cardiac telemetry, monitor for any arrhythmias. No arrhythmias overnight. -Pain control, IV Toradol. Benadryl IV PRN for itching. -Supportive care. Diffuse generalized pain -Patient complaint of diffuse pain in bilateral upper and lower extremities. No specific joint is noted. Concern would be for any septic joint. At this time the pain is generalized. -Will continue to monitor. -Continue IV Toradol. History of hepatitis C -HSV PCR positive from last admission. -Outpatient follow up with Hepatology. History of IVDU -Patient denies any recent use of substance abuse or IV drugs. -Awaiting toxicology screen. History of left brachial vein DVT and right upper extremity DVT in October 2017 -No specific swelling noted. -Will continue to monitor. Placed on Lovenox. Tobacco abuse: Encouraged cessation. DVT prophylaxis: SCDs. Lovenox. Discharge Planning: Awaiting culture growth and ID recommendations for long-term treatment plan of endocarditis. (1) Sepsis Qualifiers: Sepsis type: sepsis due to unspecified organism Qualified Code(s): A41.9 - Sepsis, unspecified organism
[2017-12-13] MEDS: Enoxaparin Inj 40 MG/0.4 ML Syringe SQ SCH (08:35)
[2017-12-13] MEDS ORDERED: Vancomycin Inj 500 MG in Sodium Chlor 0.9% Inj 100 ML IV.SIG SCH (12:00)
--- NOTE | 2017-12-13 15:37 | P.PNID ---
Subjective Remarks: Patient is a 27-year-old female, she is currently homeless, presented to the hospital complaining of severe pain in both hands and feet, some subjective fevers, and a diffuse rash. Patient was in the hospital back in August, and at that time she was diagnosed to have a large vegetation in her mitral valve, with severe mitral regurgitation. Her blood cultures at that time were positive for MRSA, and the last positive blood culture was from September 16. During her presentation, she had evidence of embolic lesions in the brain, as well as in the spleen, as well as multiple embolic lesions in her body. She was in the hospital and was getting IV antibiotics, and there was a repeat echo done towards the end of September, and it read a small vegetation in the mitral valve. During that hospitalization, there was documentation that she was using IV drugs. Cardiothoracic surgeon had seen her and felt that she was a high risk for any kind of surgery due to her ongoing IV drug use. She signed out AGAINST MEDICAL ADVICE on October 23 and apparently has been homeless. She presented with dimension complaints. She continues to use IV drugs. Patient currently is complaining of significant pain in both hands and feet. She has not had any cough. She has had some chest pain, and chest x-ray on this admission did not show any cardiopulmonary disease. She denies any nausea or vomiting or any diarrhea. Since admission she has been febrile up to 102. Blood cultures are still pending. Infectious disease consultation has been requested to evaluate the patient with history of endocarditis, ongoing IV drug use, and evidence of sepsis. Notes reviewed Temjason velazquez Feels a little better Echo report noted [facility] (+) 12/11-12/12 [facility] Antibiotics: Cefepime Vancomycin Past Medical History: Endocarditis MRSA bacteremia Mitral regurgitation Allergies/Adverse Reactions: Allergies Penicillins Allergy (Severe, Verified 12/11/17 12:44) Anaphylaxis Objective Vital Signs 12/12/17 16:00 12/12/17 20:00 12/13/17 00:00 Temperature 97.0 F L 97.7 F 98.4 F Pulse Rate 98 H 114 H 117 H Respiratory Rate 16 20 20 Blood Pressure 104/76 103/70 114/67 Pulse Oximetry 100 100 98 12/13/17 07:41 12/13/17 08:00 12/13/17 12:00 Temperature 98.2 F 98.2 F 97.6 F Pulse Rate 105 H 105 H 114 H Respiratory Rate 20 20 20 Blood Pressure 119/71 119/71 138/88 Pulse Oximetry 97 97 95 Intake & Output 12/12/17 12/13/17 12/13/17 18:59 06:59 18:59 Intake Total 1540 / 1540 1360 / 1360 Output Total 3 / 3 600 / 600 Balance 1537 / 1537 760 / 760 Weight 56.2 kg Intake: IV 1300 / 1300 1000 / 1000 NS Inj 1,000 ML @ 100 mls/hr IV 1000 / 1000 1000 / 1000 .CONT .Q10H ANDREIA Rx#:[id number] Maxipime Inj 2,000 MG In NS Inj 200 / 200 100 ML @ 200 mls/hr IV.SIG Q8H ANDREIA Rx#:[id number] Vancomycin Inj 500 MG In NS Inj 100 / 100 100 ML @ 200 mls/hr IV.SIG Q8H ANDREIA Rx#:[id number] Oral 240 / 240 360 / 360 Output: Urine 3 3 600 / 600 Other: # Voids 2 # Bowel Movements 4 12/12/17 10:20 Blood - Peripheral Aerobic Blood Culture - Preliminary gram positive cocci 12/12/17 10:20 Blood - Peripheral Anaerobic Blood Culture - Preliminary No growth in 1 day 12/11/17 15:15 Blood - Peripheral Aerobic Blood Culture - Preliminary Staphylococcus aureus 12/11/17 15:15 Blood - Peripheral Anaerobic Blood Culture - Preliminary Staphylococcus aureus 12/11/17 15:10 Blood - Peripheral Aerobic Blood Culture - Preliminary Staphylococcus aureus 12/11/17 15:10 Blood - Peripheral Anaerobic Blood Culture - Preliminary Staphylococcus aureus 12/12/17 10:10 Blood - Peripheral Aerobic Blood Culture - Preliminary gram positive cocci 12/12/17 10:10 Blood - Peripheral Anaerobic Blood Culture - Preliminary No growth in 1 day 12/11/17 19:00 Clean Catch Urine Urine Culture - Final <10,000 cfu/mL mixed gram positive uzma - no further workup 12/11/17 15:45 Nasal Wash Influenza Types A,B Antigen - Final Negative for FLU A and B antigen Infection due to influenza A or B cannot be ruled out since the antigen present in the sample may be below the detection limit of the test. Lab - Hematology Results 12/12/17 10:20 CBC w Diff Auto diff final WBC 11.5 H RBC 4.01 Hgb 10.4 L Hct 32.6 L MCV 81.3 MCH 26.0 L MCHC 32.0 RDW 14.0 Plt Count 135 L MPV 9.3 Neut % (Auto) 85.1 H Lymph % (Auto) 6.7 L [place] % (Auto) 7.0 Eos % (Auto) 0.6 Baso % (Auto) 0.6 Neut # (Auto) 9.7 H Lymph # (Auto) 0.8 L [place] # (Auto) 0.8 Eos # (Auto) 0.1 Baso # (Auto) 0.1 WBC Differential . Differential Comment . Lab - Chemistry Results 12/11/17 12/11/17 12/11/17 15:10 15:10 18:10 Sodium 129 L Potassium 3.5 Chloride 95 L Carbon Dioxide 21.6 Anion Gap 12 BUN 20 H Creatinine 0.75 Estimated GFR Greater than 89 Random Glucose 111 H Lactic Acid 2.7 H 1.6 Calcium 8.7 Total Bilirubin 0.6 AST 50 H ALT 39 Alkaline Phosphatase 86 Total Protein 8.3 H Albumin 2.8 L 12/12/17 10:20 Sodium 143 D Potassium 3.1 L Chloride 112 H D Carbon Dioxide 19.7 L Anion Gap 11 BUN 25 H Creatinine 0.78 Estimated GFR 89 Random Glucose 80 Lactic Acid Calcium 8.2 L Total Bilirubin AST ALT Alkaline Phosphatase Total Protein Albumin Imaging: ITS Impressions Chest X-Ray 12/11/17 14:26 CONCLUSION: No acute cardiopulmonary abnormality is identified. Head CT 12/11/17 14:26 CONCLUSION: No acute intracranial abnormality is identified. . Physical Exam: GENERAL: awakens easily, C/O diffuse pain. NAD SKIN: Warm and dry. Flushed face and neck area. Has generalized blanching pink papules, and has tender red very small nodular lesions in palms and soles of her feet. HEAD: Atraumatic. Normocephalic. No temporal wasting, or tenderness. EYES: [place] conjunctiva. No petechia or hemorrhage. Pupils equal, round and reactive to light. Extraocular movements full and intact. No scleral icterus. No injection or drainage. EARS, NOSE AND THROAT: Nose without bleeding or purulent nasal discharge. No sinus tenderness. Mucous membranes pink and moist. No oral lesions noted. No exudate. No oral thrush. NECK: Trachea midline. Supple and not tender, no meningeal signs CARDIOVASCULAR: Regular rate and rhythm. Tachycardic. Has murmur on L precordium, no rub. RESPIRATORY: Clear to auscultation. Breath sounds equal bilaterally. No rales , wheezing or rhonchi ABDOMEN: Soft, flat, non-tender, nondistended. Bowel sounds present and normoactive. No guarding. No rebound. No organomegaly. EXTREMITIES: No clubbing, cyanosis, or edema. No joint effusion, has good ROM. No calf tenderness. Well perfused and warm. 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
[2017-12-13] MEDS ORDERED: Pharmacy Ordered Lab Info OTHER ONE (15:45)
[2017-12-13 17:44] VITALS: BP 118/82; PULSE 116; RESP 18; TEMP 98.2; O2SAT 100
[2017-12-14] MEDS ORDERED: VANCOMYCIN TROUGH OTHER ONE (11:45)
== END 2017-12-13 18:00 | disposition left against medical advice (07) ==
LOC: PHED 12:35 → INTOOBSV 17:03 → PHEDA 17:03 → PH3 20:25
PROVIDERS: ADMIT Internal Medicine; ATTEND Internal Medicine